=== PATIENT | male | born 1960 | race Caucasian/White ===

== ENCOUNTER 2017-03-01 18:06 | Inpatient (IN) ==
[2017-03-01] MEDS ORDERED: *HR* FentaNYL (PF) 100 MCG/2 ML VIAL IVP ONE (20:00)
[2017-03-01] MEDS ORDERED: Ondansetron 4 MG/2 ML VIAL IVP ONE (20:00)
[2017-03-01] MEDS ORDERED: 0.9 % Sodium Chloride 1,000 ML IVC ONE (20:00)
--- NOTE | 2017-03-01 20:08 | Emergency Department Note ---
Disposition Clinical Impression: Abdominal pain Qualifiers: Abdominal location: right lower quadrant Qualified Code(s): R10.31 - Right lower quadrant pain Disposition: Admitted As Inpatient Condition: Good [facility]: [facility]Primary Care Provider[facility] - Forms: Work/School Release, ED Satisfaction Letter Time of Disposition: 21:13 General Adult HPI - General Chief complaint: ED Abdominal Pain Stated complaint: RLQ pain Time Seen by Provider: 03/01/17 19:28 Source: patient Limitations: no limitations Nursing Notes Reviewed: Yes Vital Signs Reviewed: Yes - History of Present Illness HPI Narrative: Male patient complaining of a 6 hour history of right lower quadrant pain. Did have an episode of diaphoresis prior to this starting. States the pain is constant in his right lower quadrant. It does not radiate. The pain is not changed. There are no provoking or alleviating symptoms. Pain Scale: 8 - Related Data Home Medications Medication Instructions Recorded Confirmed Albuterol Sulfate [Albuterol 2 puff IH QID PRN 04/19/15 04/19/15 Inhaler] Aspirin Enteric Coated [Aspirin EC] 81 mg PO DAILY 04/19/15 04/19/15 Baclofen 10 mg PO TID PRN 04/19/15 04/19/15 Citalopram Hydrobromide 20 mg PO HS 04/19/15 04/19/15 [Citalopram HBr] Etodolac 400 mg PO BID 04/19/15 04/19/15 FluocinoNIDE 0.05% CRM [Lidex] 1 appl TP BID 04/19/15 04/19/15 Formoterol Fumarate [Foradil] 12 mcg IH BID 04/19/15 04/19/15 Gabapentin 800 mg PO TID 04/19/15 04/19/15 Ipratropium [place] [Atrovent Hfa] 2 puff IH QID 04/19/15 04/19/15 Lisinopril [Zestril] 40 mg PO DAILY 04/19/15 04/19/15 [place]-3 Fatty Acids/Fish Oil [Fish 2 each PO DAILY 04/19/15 04/19/15 Oil 1,000 mg Capsule] Omeprazole [Prilosec] 20 mg PO DAILY 04/19/15 04/19/15 Tadalafil [Cialis] 5 mg PO AD 04/19/15 04/19/15 TraMADol [Ultram] 100 mg PO BID PRN 04/19/15 04/19/15 Previous Rx's Medication Instructions Recorded Atorvastatin [Lipitor] 80 mg PO HS #30 tablet 04/21/15 Clopidogrel [Plavix] 75 mg PO DAILY #30 tablet 04/21/15 Hydrocodone/Acetaminophen [Mark 1 tab PO TID PRN #10 tab 07/16/16 5-325 Tablet] diazePAM [Valium] 5 mg PO TID #10 tablet 07/16/16 Allergies Allergy/AdvReac Type Severity Reaction Status Date / Time hydrochlorothiazide AdvReac Agitated Verified 07/16/16 22:14 All systems ED: reviewed and negative except as stated. Constitutional: Reports: fever (Subjective today. Began around 1.), chills Cardiovascular: Denies: chest pain, palpitations, syncope Respiratory: Denies: cough, dyspnea, wheezes Gastrointestinal: Reports: abdominal pain (Right lower quadrant.), nausea, diarrhea (One episode this evening). Denies: vomiting, hematemesis, melena, hematochezia Genitourinary: Denies: urgency, dysuria, frequency, hematuria Musculoskeletal: Denies: back pain, neck pain Integumentary: Denies: rash Past Medical History - Past Medical History Attestation: Yes The following information was validated with the patient. Medical history: Reports: arthritis, COPD, coronary artery disease, GERD, hypertension, peripheral artery disease, TIA, other Surgical history: Reports: angioplasty/stent, carotid endarterectomy, other Psychiatric history: Reports: no psych history - Social History Smoking Status: Former smoker Smokeless Tobacco Status: No Alcohol use: Reports: none Drug use: Reports: none Physical Exam - General Limitations: no limitations General appearance: alert, in distress (Appears in a significant amount of pain. ) - Head Head exam: atraumatic, normocephalic, normal inspection - Eye Eye exam: Present: normal appearance, PERRL, EOMI. Absent: scleral icterus - ENT ENT exam: normal exam, normal oropharynx, mucous membranes moist - Neck Neck exam: Present: normal inspection, full ROM, trachea midline. Absent: tenderness, meningismus, lymphadenopathy - Chest Chest inspection: Present: normal inspection, symmetric chest wall rise. Absent : tenderness - Respiratory Respiratory exam: Present: normal lung sounds bilaterally. Absent: respiratory distress, wheezes, accessory muscle use - Cardiovascular Cardiovascular exam: Present: regular rate, normal rhythm, normal heart sounds - Abdominal Exam Abdominal exam: Present: soft, tenderness (Peritoneal signs. She was really tender on right lower quadrant.), normal bowel sounds, obturator sign, Rovsing' s sign. Absent: distention, guarding, rigidity, organomegaly, Arana's sign, tenderness at McBurney's Point - Extremities Exam Extremities exam: Present: normal inspection, full ROM, normal capillary refill. Absent: tenderness, pedal edema - Back Exam Back exam: Present: normal inspection, full ROM. Absent: tenderness, CVA tenderness (R), CVA tenderness (L), muscle spasm - Neurological Exam Neurological exam: Present: alert, oriented X3 - Psychiatric Psychiatric exam: Present: normal affect, normal mood - Skin Skin exam: Present: warm, dry, intact, normal color. Absent: rash, cyanosis, diaphoresis, erythema Course Course Narrative: Male patient lying in bed complaining of right lower quadrant pain. He states this started around 2:00 this afternoon. An hour prior to this he started developing episodes of sweating and hot and cold chills. He states he was seen by EMS at work and was told that his blood pressure and temperature were normal. He then decided to go home. After he got home he started having right lower quadrant pain. He states the pain is in the same spot the whole time. It is not moved. He denies a history of kidney stones. He denies any CVA tenderness at rest or on exam. He denies any urinary symptoms or hematuria. He does report some nausea but no vomiting. He also reports having 3 bowel movements today the last one being softer than normal. He denies any history of abdominal surgeries. On exam patient looks to be in a significant amount of pain. He is holding his right lower quadrant. His lung sounds are clear heart tones are normal. On abdominal exam he is exquisitely tender in his right lower quadrant. He has a Rovsing sign. There is no Arana sign. He has an obturator sign as well. He states that he is slightly nauseated however has no episodes of vomiting. He has no pain with heel tap. Basic lab workup and a CT of patient's abdomen. I will contact the surgeon to discuss the physical exam findings are consistent with acute appendicitis. We will give the patient a fluid bolus and attempt to control his nausea and pain. - Reevaluation(s) Reevaluation #1: Patient reassessed. He states that the pain has eased with the fentanyl. The Zofran did help with the nausea as well. He is requesting a drink at this time. I have told him that we will wait and keep him nothing by mouth for now. He states his last oral intake was around 11:30 today. He states he does take Plavix daily but is on no other blood thinners. 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 Time: 20:52 - Consultations Consultation #1: I spoke with Dr. Lara. I expressed my concern for a appendicitis due to his right lower quadrant pain that has been present for 6 hours. He also has a positive obturator sign. He is also having some nausea but no vomiting. His abdomen is exquisitely tender on palpation. He also has a Rovsing sign. He expresses concern that we do not have lab work back yet. He is requesting a phone call back whenever we have a white blood cell count. Time: 20:07 Consultation #2: I spoke with Dr. Lara again. I made him aware that the patient is still in significant amount of pain even after pain medication administration. I have let him know that his white blood cell count is elevated however the CT scan was read as negative. He states he will admit the patient to his service. Time: 21:09 Vital Signs Temperature 98.7 F 03/01/17 18:37 Pulse Rate 63 03/01/17 18:37 Respiratory Rate 18 03/01/17 18:37 Blood Pressure 97/60 03/01/17 18:37 O2 Sat by Pulse Oximetry 95 03/01/17 18:37 Temperature 98.7 F 03/01/17 18:37 Pulse Rate 63 03/01/17 18:37 Respiratory Rate 18 03/01/17 18:37 Blood Pressure 97/60 03/01/17 18:37 O2 Sat by Pulse Oximetry 95 03/01/17 18:37 Oxygen Delivery Oxygen Delivery Room Air Medical Decision Making - Medical Records Medical records reviewed: Yes I reviewed the patient's medical records. - Lab Data Lab results reviewed: Yes I reviewed the patient's lab results. Result diagrams: 03/01/17 20:11 03/01/17 20:11 Lab Results 0603/01/17 03/01/17 Range/Units 20:07 20:11 20:11 WBC 19.0 H (4.3-11.1) K/mcL RBC 4.91 (4.19-5.50) M/mcL Hgb 14.7 (12.9-16.9) g/dL Hct 43.5 (37.5-50.1) % MCV 88.6 (83.0-100.0) fL MCH 29.9 (28.0-33.3) pg MCHC 33.8 (31.6-35.5) g/dL RDW 13.6 (11.5-14.5) % Plt Count 286 (140-400) K/mcL MPV 8.4 L (9.4-12.4) fL Immature Gran % 0.4 (0-4) % Seg Neutrophils % 74.9 % Lymphocytes % 14.8 % Monocytes % 8.9 % Eosinophils % 0.8 % Basophils % 0.2 % Neutrophils # 14.2 H (1.6-8.9) K/mcL Lymphocytes # 2.8 (0.6-4.6) K/mcL Monocytes # 1.7 H (0.0-1.3) K/mcL Eosinophils # 0.2 (0.0-0.6) K/mcL Basophils # 0.0 (0.0-0.2) K/mcL PT (9.4-12.1) Seconds INR Sodium 138 (136-145) mEq/L Potassium 4.0 (3.5-4.5) mEq/L Chloride 101 (98-109) mEq/L Carbon Dioxide 30 H (19-29) mEq/L BUN 16 (8-26) mg/dL Creatinine 1.20 (0.72-1.25) mg/dL Est GFR ( Amer) > 60 (> 60) Est GFR (Non-Af Amer) > 60 (> 60) BUN/Creatinine Ratio 13 (6-26) Glucose 135 H (70-99) mg/dL Calculated Osmolality 289 (280-300) Calcium 9.3 (8.6-10.8) mg/dL Total Bilirubin 0.2 (0.2-1.2) mg/dL Direct Bilirubin 0.1 (0.0-0.5) mg/dL Indirect Bilirubin 0.1 (0.0-1.2) mg/dL AST 20 (5-34) Units/L ALT 37 (0-55) Units/L Alkaline Phosphatase 92 (38-126) Units/L Troponin I (0-0.03) ng/mL Serum Total Protein 7.2 (6.0-8.3) g/dL Albumin 3.8 (3.5-5.0) g/dL Globulin 3.4 (2.4-3.5) g/dL Albumin/Globulin Ratio 1.1 (1.1-2.2) Lipase 25 (8-78) Units/L Urine Color Yellow (Yellow) Urine Clarity Cloudy A (Clear) Urine pH 6.5 (5.0-8.0) pH Units Ur Specific [place] 1.025 (1.010-1.025) Urine Protein Negative (Neg-Trace) mg/dL Urine Glucose (UA) 500 H (Normal) mg/dL Urine Ketones Negative (Negative) mg/dL Urine Blood Moderate H (Negative) Urine Nitrite Negative (Negative) Urine Bilirubin Negative (Negative) Urine Urobilinogen Normal (Normal) mg/dL Ur Leukocyte Esterase Negative (Negative) Urine Microscopic RBC 0-3 (0-3) per hpf Urine Microscopic WBC 5-15 H (0-3) per hpf Ur Squamous Epith Cells Many H (None-Few) per lpf Urine Bacteria None Seen (None-Few) per hpf Hyaline Casts None Seen (None-Few) per lpf Urine Yeast Test Not Performed Urine Sperm Present Ur Culture Indicated? YES A (NO) 03/01/17 03/01/17 Range/Units 20:11 20:11 WBC (4.3-11.1) K/mcL RBC (4.19-5.50) M/mcL Hgb (12.9-16.9) g/dL Hct (37.5-50.1) % MCV (83.0-100.0) fL MCH (28.0-33.3) pg MCHC (31.6-35.5) g/dL RDW (11.5-14.5) % Plt Count (140-400) K/mcL MPV (9.4-12.4) fL Immature Gran % (0-4) % Seg Neutrophils % % Lymphocytes % % Monocytes % % Eosinophils % % Basophils % % Neutrophils # (1.6-8.9) K/mcL Lymphocytes # (0.6-4.6) K/mcL Monocytes # (0.0-1.3) K/mcL Eosinophils # (0.0-0.6) K/mcL Basophils # (0.0-0.2) K/mcL PT 11.0 (9.4-12.1) Seconds INR 1.0 Sodium (136-145) mEq/L Potassium (3.5-4.5) mEq/L Chloride (98-109) mEq/L Carbon Dioxide (19-29) mEq/L BUN (8-26) mg/dL Creatinine (0.72-1.25) mg/dL Est GFR ( Amer) (> 60) Est GFR (Non-Af Amer) (> 60) BUN/Creatinine Ratio (6-26) Glucose (70-99) mg/dL Calculated Osmolality (280-300) Calcium (8.6-10.8) mg/dL Total Bilirubin (0.2-1.2) mg/dL Direct Bilirubin (0.0-0.5) mg/dL Indirect Bilirubin (0.0-1.2) mg/dL AST (5-34) Units/L ALT (0-55) Units/L Alkaline Phosphatase (38-126) Units/L Troponin I 0.00 (0-0.03) ng/mL Serum Total Protein (6.0-8.3) g/dL Albumin (3.5-5.0) g/dL Globulin (2.4-3.5) g/dL Albumin/Globulin Ratio (1.1-2.2) Lipase (8-78) Units/L Urine Color (Yellow) Urine Clarity (Clear) Urine pH (5.0-8.0) pH Units Ur Specific [place] (1.010-1.025) Urine Protein (Neg-Trace) mg/dL Urine Glucose (UA) (Normal) mg/dL Urine Ketones (Negative) mg/dL Urine Blood (Negative) Urine Nitrite (Negative) Urine Bilirubin (Negative) Urine Urobilinogen (Normal) mg/dL Ur Leukocyte Esterase (Negative) Urine Microscopic RBC (0-3) per hpf Urine Microscopic WBC (0-3) per hpf Ur Squamous Epith Cells (None-Few) per lpf Urine Bacteria (None-Few) per hpf Hyaline Casts (None-Few) per lpf Urine Yeast Urine Sperm Ur Culture Indicated? (NO) - Radiology Data Radiology results reviewed: Yes I reviewed the patient's radiology results. Abdomen/Pelvis CT 03/01/17 19:58 IMPRESSION: No evidence of obstructive uropathy. No acute appendicitis or other acute gastrointestinal abnormality. D/ / 03/01/2017 20:54:39 Anisha Walker MD / leanna Interpreting Provider: Anisha Walker MD Attestation Statement - Attestation Attestation: I examined this patient and my medical decision-making was reviewed with the SUPERVISING CHEF/PA/Advanced Practice Nurse/Resident Physician. I agree with the documented findings, disposition and treatment plan as described except to the extent set forth below. RLQ pain, +peritoneal signs and +guarding. concerns for Appy vs stone. will check labs. consulted with Dr Lara who wanted labs first.
[2017-03-01 20:18] LABS: Bilirubin,Urine Negative (Negative); Blood,Urine Moderate (Negative); Clarity,Urine Cloudy (Clear); Color,Urine Yellow (Yellow); Glucose,Urine (UA) 500 mg/dL (Normal); Ketones,Urine Negative (Negative); Leukocyte Esterase,Urine Negative (Negative); Nitrite,Urine Negative (Negative); PH,Urine 6.5 pH Units (5.0-8.0); Protein,Urine Negative (Neg-Trace); Specific Gravity,Urine 1.025 (1.010-1.025); Urobilinogen,Urine Normal (Normal)
[2017-03-01 20:19] LABS: Bacteria,Urine None Seen per hpf (None-Few); Hyaline Casts,Urine None Seen per lpf (None-Few); RBC,Urine 0-3 per hpf (0-3); Squamous Epithelial Cell,Urine Many per lpf (None-Few)
[2017-03-01 20:24] LABS: Basophils % 0.2 %; Eosinophils # 0.2 K/mcL (0.0-0.6); Eosinophils % 0.8 %; Hematocrit 43.5 % (37.5-50.1); Hemoglobin 14.7 g/dL (12.9-16.9); Immature Granulocytes % 0.4 % (0-4); Lymphocytes # 2.8 K/mcL (0.6-4.6); Lymphocytes % 14.8 %; Mean Corpuscular HGB Conc 33.8 g/dL (31.6-35.5); Mean Corpuscular Hemoglobin 29.9 pg (28.0-33.3); Mean Corpuscular Volume 88.6 fL (83.0-100.0); Mean Platelet Volume 8.4 fL (9.4-12.4); Monocytes # 1.7 K/mcL (0.0-1.3); Monocytes % 8.9 %; Neutrophils # 14.2 K/mcL (1.6-8.9); Platelet Count 286 K/mcL (140-400); Red Blood Count 4.91 M/mcL (4.19-5.50); Red Cell Distribution Width 13.6 % (11.5-14.5); Segmented Neutrophils % 74.9 %
[2017-03-01 20:30] LABS: Sperm,Urine Present
[2017-03-01 20:41] LABS: Alanine Aminotransferase 37 Units/L (0-55); Albumin 3.8 g/dL (3.5-5.0); Albumin/Globulin Ratio 1.1 (1.1-2.2); Alkaline Phosphatase 92 Units/L (38-126); Aspartate Amino Transferase 20 Units/L (5-34); BUN/Creatinine Ratio 13 (6-26); Bilirubin,Direct 0.1 mg/dL (0.0-0.5); Bilirubin,Indirect 0.1 mg/dL (0.0-1.2); Bilirubin,Total 0.2 mg/dL (0.2-1.2); Blood Urea Nitrogen 16 mg/dL (8-26); Calcium 9.3 mg/dL (8.6-10.8); Carbon Dioxide 30 mEq/L (19-29); Chloride 101 mEq/L (98-109); Globulin 3.4 g/dL (2.4-3.5); Glucose 135 mg/dL (70-99); Lipase 25 Units/L (8-78); Osmolality,Calculated 289 (280-300); Sodium 138 mEq/L (136-145); Total Protein 7.2 g/dL (6.0-8.3); eGFR For African Americans > 60 (> 60); eGFR For Non-African Americans > 60 (> 60)
[2017-03-01] MEDS ORDERED: Ondansetron 4 MG/2 ML VIAL IVP PRN (22:49)
[2017-03-01] MEDS: *HR* HYDROmorphone (PF) 1 MG/ML SYRINGE IVP PRN (23:10)
[2017-03-01] MEDS: Ringers Solution, Lactated 1,000 ML IVC SCH (23:13)
[2017-03-02] MEDS: Piperacillin/Tazobactam 3.375 GM in D5% in Water (Mini-Bag+) 100 ML IVPB SCH ×3 (00:55→22:15)
[2017-03-02] MEDS: *HR* HYDROmorphone (PF) 1 MG/ML SYRINGE IVP PRN ×7 (01:53→17:58)
[2017-03-02 05:28] LABS: Basophils % 0.2 %; Eosinophils # 0.1 K/mcL (0.0-0.6); Eosinophils % 0.4 %; Hematocrit 41.3 % (37.5-50.1); Immature Granulocytes % 0.4 % (0-4); Lymphocytes # 2.1 K/mcL (0.6-4.6); Lymphocytes % 10.4 %; Mean Corpuscular HGB Conc 33.9 g/dL (31.6-35.5); Mean Corpuscular Hemoglobin 29.6 pg (28.0-33.3); Mean Corpuscular Volume 87.3 fL (83.0-100.0); Mean Platelet Volume 8.8 fL (9.4-12.4); Monocytes # 1.8 K/mcL (0.0-1.3); Neutrophils # 15.8 K/mcL (1.6-8.9); Platelet Count 268 K/mcL (140-400); Red Blood Count 4.73 M/mcL (4.19-5.50); Red Cell Distribution Width 13.5 % (11.5-14.5); Segmented Neutrophils % 79.6 %
[2017-03-02] MEDS: Ringers Solution, Lactated 1,000 ML IVC SCH ×4 (08:55→15:40)
[2017-03-02] MEDS ORDERED: Bupivacaine/EPI 1:200k 0.25%PF 30 ML VIAL ONE ×2 (11:17→14:18)
--- NOTE | 2017-03-02 11:29 | General Surg History&Physical ---
Date of Encounter: 03/02/17 Time of Encounter: 10:45 History of Present Illness Chief complaint: Acute right lower quadrant abdominal pain, suspected acute appendicitis HPI: Mr. Gonzalez is a 56 year old male referred to surgical services after presenting to the emergency department with a 6 hour history of acute onset right lower quadrant abdominal pain. Patient describes antecedent chills and riders prior to onset of the pain. No nausea or vomiting. The patient was found to be exquisitely tender in the right lower quadrant with a leukocytosis of 19.0. CT the abdomen and pelvis was nondiagnostic though this is possible in the first 24 hours of onset of symptoms. Patient was admitted for observation. The patient's pain has continued unabated but has not progressed. He is still as acutely tender in the right lower quadrant with guarding. Repeat white count is 19.9. CT was personally reviewed with [facility]. The clinical findings, CT and labs were discussed with the patient and his . Surgery has been recommended. Past medical history: Hypertension; carotid stenosis. Surgical history: Cervical neck surgery effusion; carpal tunnel surgery; left carotid endarterectomy Allergies: Hydrochlorothiazide Medications: Albuterol 2 puffs 4 times a day when necessary Aspirin 81 mg by mouth daily Baclofen 10 mg by mouth 3 times a day when necessary Citalopram 20 mg by mouth daily at bedtime Etodolac 400 mg by mouth twice a day Fluocinonide 0.05% applied topically twice a day Formoterol 12 g inhaled twice a day Gabapentin 800 mg by mouth 3 times a day Ipratropium (Atrovent HFA) 2 puffs 4 times a day LIsinopril 40 mg by mouth daily [place]-3 fish oil 1000 mg 2 by mouth daily Omeprazole 20 mg by mouth daily Tadalafil 5 mg by mouth as directed Tramadol 100 mg by mouth twice a day as needed for pain Social history: Patient is , lives with spouse; former smoking admitting to 2 packs a day for 20 years but quit approximately 20 years ago. The patient admits to an occasional beer; he does not use illicit drugs Family history: Noncontributory Physical examination: Patient appears older than his stated age lying quietly in his hospital bed. The patient indicates movement hurts. Patient has been afebrile, currently 98.2; pulse 78, respirations 16, blood pressure 149/89. SPO2 on room air 92% Skin is warm, without obvious jaundice, multiple cutaneous tattoos are present Lungs: Clear to auscultation, pain on deep inspiration and cough Cardiac: Regular rate, no appreciable murmurs Abdomen: Nondistended, acutely tender in the right lower quadrant with guarding. There is referred pain from palpation of the other quadrants. Hypoactive bowel sounds. Extremities: No obvious clubbing cyanosis or edema. Laboratories: White count this morning 19.8, hemoglobin 14.0 with hematocrit 41.3; platelet count 268,000. Electrolytes on admission: notable for elevated carbon dioxide; other electrolytes, BUN, creatinine WNL; glucose 135 LFTs WNL urinalysis: pH 6.5; sp gravity 1.025; glucose 500, moderate blood, 0-3 WBC per HPF; 5-15 RBC per HPF Impression: A 56-year-old male with acute onset right lower quadrant abdominal pain. Pain has persisted through the night, leukocytosis has increased. There is evidence of hematuria though CT demonstrated no renal or ureteral abnormalities. No evidence of acute appendicitis was evident on CT but clinically it is quite likely that he has acute appendicitis. Treatment options include repeat CT, pain control and continued IV antibiotics versus surgery. Surgical risks including hemorrhage, infection, intra-abdominal abscess, injury to adjacent structures such as bowel, bladder, ureters; and possible removal normal appendix. The patient and his expressed understanding. They wish to proceed with surgery. This will be arranged as soon as possible. The patient is a reasonable candidate for laparoscopic appendectomy but understands that an open appendectomy may become necessary. Past Med Surg Social Fam HX - Past Medical History Medical history: arthritis, COPD, coronary artery disease, GERD, hypertension, peripheral artery disease, TIA, other Psychiatric history: no psych history - Past Surgical History Surgical History: carotid endarterectomy, other - Social History Smoking Status: Former smoker Smokeless Tobacco Status: No Alcohol use: none Drug use: none - Family History Mother Family Member Ethnicity: Non- Living Status: Hx Family Cardiac Disorders: Yes (CHF) Hx Family Respiratory Disorders: No Hx Family Cancer: No Hx Family GI Disorders: No Hx Family Endocrine Disorder: No Hx Family Neuromuscular Disorders: No Hx Family Neurologic Disorders: No Hx Family HEENT Disorders: No Hx Family Autoimmune Disorders: No Medications and Allergies Albuterol Sulfate [Albuterol Inhaler] 2 puff IH QID PRN 04/19/15 [History] Citalopram Hydrobromide [Citalopram HBr] 20 mg PO HS 04/19/15 [History] Etodolac 400 mg PO BID 04/19/15 [History] Formoterol Fumarate [Foradil] 12 mcg IH BID 04/19/15 [History] Ipratropium [place] [Atrovent Hfa] 2 puff IH QID 04/19/15 [History] Lisinopril [Zestril] 40 mg PO DAILY 04/19/15 [History] Omeprazole [Prilosec] 20 mg PO DAILY 04/19/15 [History] TraMADol [Ultram] 100 mg PO TID PRN 04/19/15 [History] Clopidogrel [Plavix] 75 mg PO DAILY #30 tablet 04/21/15 [Rx] Atorvastatin Calcium [Lipitor] 20 mg PO HS 03/01/17 [History] Methocarbamol [Robaxin-750] 1,500 mg PO BID 03/01/17 [History] Allergies hydrochlorothiazide Adverse Reaction (Verified 07/16/16 22:14) Agitated Review of Systems All systems PM: A 10-system review of systems was performed and is negative for pertinent findings except as documented above in the HPI. General Surgery Exam Initial Vital Signs Temp Pulse Resp BP Pulse Ox 98.7 F 63 18 97/60 95 03/01/17 18:37 03/01/17 18:37 03/01/17 18:37 03/01/17 18:37 03/01/17 18:37 Results - Labs 03/02/17 05:13 03/01/17 20:11 Abnormal lab results WBC 19.8 K/mcL (4.3-11.1) H 03/02/17 05:13 MPV 8.8 fL (9.4-12.4) L 03/02/17 05:13 Neutrophils # 15.8 K/mcL (1.6-8.9) H 03/02/17 05:13 Monocytes # 1.8 K/mcL (0.0-1.3) H 03/02/17 05:13 Carbon Dioxide 30 mEq/L (19-29) H 03/01/17 20:11 Glucose 135 mg/dL (70-99) H 03/01/17 20:11 Urine Clarity Cloudy (Clear) A 03/01/17 20:07 Urine Glucose (UA) 500 mg/dL (Normal) H 03/01/17 20:07 Urine Blood Moderate (Negative) H 03/01/17 20:07 Urine Microscopic WBC 5-15 per hpf (0-3) H 03/01/17 20:07 Ur Squamous Epith Cells Many per lpf (None-Few) H 03/01/17 20:07 Ur Culture Indicated? YES (NO) A 03/01/17 20:07 All other labs normal.
--- NOTE | 2017-03-02 11:29 | Anesthesia Evaluation PreOp ---
Date of Encounter: 03/02/17 Time of Encounter: 11:27 - Past History Planned Operation: Lap Appy Cardiac History: HTN (maintained on Lisinopril), Hyperlipidemia (maitnained on Lipitor), Other (PVDz/CAD previously maintained on ASA, Plavix. ECHO 04/20/2015 - LVEF 55-60%, Mild LV diastolic dysfx. No SWMA) Pulmonary History: Former smoker (2ppd x 20yrs. Quit 20yrs ago), COPD ( maintained on Atrovent, Formoterol) [employer] History: TIA (2014. s/p CEA 2011 w/re-stenosis 60-79% of LICA), Other ( Chronic Pain maintaiend on Baclofen, Tramadol, GAbapentin. Anxiety/Depression maintained on Citalopram) Other Medical History: GERD (maintained on Prilosec) Anesthesia History: No Prior Anesthetic Complications, Past Anesthesia (C-spine surgery, [facility], L-CEA 2011) Alcohol Use: none Drug use: none Medications and Allergies Albuterol Sulfate [Albuterol Inhaler] 2 puff IH QID PRN 04/19/15 [History] Citalopram Hydrobromide [Citalopram HBr] 20 mg PO HS 04/19/15 [History] Etodolac 400 mg PO BID 04/19/15 [History] Formoterol Fumarate [Foradil] 12 mcg IH BID 04/19/15 [History] Ipratropium [place] [Atrovent Hfa] 2 puff IH QID 04/19/15 [History] Lisinopril [Zestril] 40 mg PO DAILY 04/19/15 [History] Omeprazole [Prilosec] 20 mg PO DAILY 04/19/15 [History] TraMADol [Ultram] 100 mg PO TID PRN 04/19/15 [History] Clopidogrel [Plavix] 75 mg PO DAILY #30 tablet 04/21/15 [Rx] Atorvastatin Calcium [Lipitor] 20 mg PO HS 03/01/17 [History] Methocarbamol [Robaxin-750] 1,500 mg PO BID 03/01/17 [History] Allergies hydrochlorothiazide Adverse Reaction (Verified 07/16/16 22:14) Agitated - Meds/Allergy Pre-op Review Medications Reviewed: Yes Allergies Reviewed: Yes Beta Blockers on Current Med List: No Anesthesia Results - Labs 03/02/17 05:13 03/01/17 20:11 Laboratory Tests 03/01/17 03/01/17 20:11 20:11 PT 11.0 INR 1.0 Est GFR (Non-Af Amer) > 60 Glucose 135 H - Imaging EKG: image reviewed (66bpm SR) Anesthesia Exam Vital Signs Temp Pulse Resp BP Pulse Ox 03/02/17 10:50 98.2 F 78 16 149/89 92 03/02/17 07:20 98.3 F 77 18 152/75 92 03/02/17 04:14 98.5 F 85 16 148/78 93 03/01/17 22:53 98.1 F 75 16 152/84 95 03/01/17 21:58 18 145/92 03/01/17 21:20 98.8 F 91 18 134/81 95 03/01/17 18:37 98.7 F 63 18 97/60 95 Intake and Output 03/01/17 03/02/17 03/02/17 23:59 07:59 15:59 Intake Total 1000 / 1000 Output Total 575 / 575 Balance 425 / 425 Intake: IV Fluids 1000 / 1000 Lactated Ringers 1,000 ML 1000 / 1000 @ 125 mls/hr IVC .Q8H CHAD Rx#:[id number] Output: Urine 575 / 575 Other: Weight 88.054 kg 86.1 kg Patient Weight 03/02/17 23:59 Weight 86.1 kg Height: 5'0" Weight: 189# BMI = 28 NPO (# of Hours): MNoc - HEENT Pupil (Motor): Pupils equal, EOMI Mallampati: III Teeth: Edentulous Oral Opening: Greater than 3 - [employer] LOC: Oriented, Confused [employer] Motor: Normal RUE, Normal LUE, Normal RLE, Normal LLE, Normal Face [employer] Sensory: Normal: RUE, LUE, RLE, LLE, Face - Cardiac Rhythm: Regular Murmur: None - Pulmonary Breath Sounds: bilateral Clear Respiratory Effort: Symmetrical Anesthesia Assess/Plan ASA Score: 3 (PVDz, CAD, COPD, DM, Smoker), E Modified [place] Scale for Level of Consciousness: Cooperative, oriented, and tranquil Anesthetic Plan: General Monitoring Plan: Standard Monitors Recovery Plan: PACU Anes Supervising Prov Stmt: PT seen/evaluated, R&B Discussed, questions answered and consent obtained. Kody Bobo MD
[2017-03-02] MEDS ORDERED: Ipratropium/Albuterol Neb 3 ML ONE (12:07)
[2017-03-02] MEDS ORDERED: Lidocaine -MPF 2% 2 ML VIAL ONE (12:13)
[2017-03-02] MEDS ORDERED: *HR* Propofol 200 MG/20 ML VIAL IVP ONE (12:13)
[2017-03-02] MEDS ORDERED: *HR* Phenylephrine 10 MG/ML VIAL ONE (12:13)
[2017-03-02] MEDS ORDERED: Lidocaine -MPF 4% 5 ML AMPUL ONE (12:13)
[2017-03-02] MEDS ORDERED: *HR* Rocuronium Bromide 50 MG/5 ML VIAL ONE ×2 (12:13→13:29)
[2017-03-02] MEDS ORDERED: *HR* FentaNYL (PF) 100 MCG/2 ML VIAL ONE ×2 (12:13→13:37)
[2017-03-02] MEDS ORDERED: *HR* Midazolam HCl 2 MG/2 ML VIAL ONE (12:13)
[2017-03-02] MEDS ORDERED: Acetaminophen IV 1,000 MG/100 ML INFUS..BTL ONE (12:15)
[2017-03-02] MEDS ORDERED: Ondansetron 4 MG/2 ML VIAL ONE (12:40)
[2017-03-02] MEDS ORDERED: Dexamethasone 4 MG/ML VIAL ONE (12:40)
[2017-03-02] MEDS ORDERED: EPHEDrine 50 MG/ML VIAL ONE (12:51)
[2017-03-02] MEDS ORDERED: Piperacillin/Tazobactam 3.375 GM in D5% in Water (Mini-Bag+) 100 ML IVPB SCH (13:00)
[2017-03-02] MEDS ORDERED: *HR* HYDROmorphone 2 MG/ML SYRINGE ONE (13:04)
[2017-03-02] MEDS ORDERED: *HR* Promethazine 25 MG/ML VIAL IVP PRN (13:51)
[2017-03-02] MEDS ORDERED: *HR* Labetalol 20 MG/4 ML SYRINGE IVP PRN (13:51)
--- NOTE | 2017-03-02 14:45 | Operative Note ---
Date of procedure: 03/02/17 Pre-op diagnosis: acute right lower quadrant pain, suspected acute appendicitis Post-op diagnosis: other (necrotic cecum) Procedure: Laparoscopy, open right colectomy Complications: none apparent Anesthesia: GETA Local Anesthetics: 0.25% Sensorcaine HCL with Epinephrine 1:200,000 SubQ (cc) ( 30mL) Surgeon: Augusto Lara Estimated blood loss (cc): 150 IV fluids (cc): 1,500 Specimen: right colon Condition: stable Disposition: PACU Procedure in Detail: The patient was brought to the operating room where he was placed supine upon the operating table. The patient was appropriately identified as to person and procedure. The accuracy of this information was confirmed by the procedure team. The patient was then intubated and anesthetized under the supervision of Dr. Arely Madsen. Examination of the abdomen demonstrated no palpable abnormalities. As it was uncertain that the patient had voided any time prior to surgery, a Don catheter was inserted. This was accomplished after dilating a mild urethral stricture with a hemostat. Approximately 500 mL of clear yellow urine was evacuated once the Don was inserted. Several milliliters of 0.25% bupivacaine with 1-200,000 epinephrine was infiltrated into the infraumbilical skin. A small transverse incision was made, dissection was carried to the fascia. The fascia was grasped, elevated, and infiltrated with additional bupivacaine with epinephrine solution. The fascia was then incised, an 11 mm Xcel port was established. A rigid 10 mm laparoscope was placed within the obturator to visualize passage through the layers of the anterior abdominal wall. The abdominal cavity was accessed, the obturator was replaced by the rigid laparoscope. The abdomen was insufflated with gaseous carbon dioxide Under direct visualization a 5 mm suprapubic port was established and the 12 mm port established in the left lower quadrant, midclavicular line. Each of these sites was infiltrated with 0.25% bupivacaine with epinephrine. Using endoscopic [place] clamps, the cecum was identified and elevated. The antimesenteric wall of the cecum was necrotic with pneumatosis evident within the wall. The appendix appeared grossly normal. Based on these findings, the laparoscopic appendectomy was abandoned. The pneumoperitoneum was evacuated, the instrumentation removed. Instrumentation was changed to prepare for an open right colectomy. When the team was ready, an oblique incision was placed in the right anterior abdominal wall extending from the anterior axillary line almost to the midline. Several milliliters of 0.25% bupivacaine with 1-200,000 epinephrine was infiltrated into the skin along the proposed incision line. The skin was then incised, dissection was carried through the subcutaneous tissue. Bleeding points were controlled with electrocautery the right rectus abdominis muscle was divided with electrocautery. It was necessary to suture ligate the epigastric vessels with 3-0 silk. The posterior rectus sheath was grasped with Kristy clamps and elevated. The fascia was incised, the abdomen entered atraumatically. Exposure was facilitated by use of a self-retaining Omni tract retractor. The cecum and attached appendix were exteriorized. The distal terminal ileum was adherent in the pelvis but mobilized readily when fully dissected. The lateral peritoneal reflection was incised to the hepatic flexure. Using an Ethicon 75 mm linear stapler (blue cartridge), the distal ileum was divided approximately 2 cm proximal to the ileocecal valve and the colon was transected just distal to the hepatic flexure. The mesentery was divided with the aid of the [employer]. The right colic vessels were isolated, clamped with Kristy clamps, and divided. Theses vessels were suture ligated with 2-0 silk. The colon was removed from the operative field with the attached appendix. The distal ileum was placed alongside the transverse colon. The 2 segments of intestine were approximated with interrupted seromuscular 3-0 silk. The ends of the transverse colon and distal ileum were opened, a stapled [id number], functional end-to-end anastomosis was created with application of the Ethicon 75 mm stapler. (blue cartridge). The remaining opening in the bowel was approximated with interrupted 3-0 silk reinforced by application of an Ethicon TX 60 mm stapler (blue cartridge). The mesenteric defect was closed with interrupted 3-0 silk. The abdomen was inspected for adequate hemostasis. The remainder of the bowel was examined with no other abnormalities encountered. The abdominal wall was then closed in layers. The peritoneum was approximated with the posterior rectus sheath using running interlocking 0 Vicryl. The anterior rectus sheath was reapproximated with interrupted [id number]'s O Vicryl. Each of these layers was infiltrated with the bupivacaine with epinephrine solution. Skin edges were reapproximated with wing. The laparoscopic port sites were also closed with wing. Dry sterile dressings were applied. The patient was taken to recovery in stable condition. Needle, sponge, and instrument counts were correct at the close of the case. Total volume of 0.25% bupivacaine with 1-200,000 units epinephrine used during this procedure, 30 mL. right colon was opened on the back table, there were no palpable abnormalities associated with the necrotic antimesenteric wall of the cecum. The specimen was sent to [facility] for further evaluation.
--- NOTE | 2017-03-02 15:23 | Anesthesia Evaluation Post Op ---
Date of Encounter: 03/02/17 Time of Encounter: 15:22 - Vital Signs Vital Signs: Last Vital Signs Temp 98.9 F 03/02/17 15:16 Pulse 103 03/02/17 15:16 Resp 12 03/02/17 15:16 BP 137/92 03/02/17 15:16 Pulse Ox 97 03/02/17 15:16 - Lungs Lungs: Clear Ascult./Percussion - Airway Airway: Non-obstructed - Cardiovascular Regular Rate - Mental Status Mental Status: Alert & Oriented, Answers Appropriately - Pain Pain Scale: 2 - Nausea Vomiting Nausea Vomiting: Not Present - Hydration Hydration: NPO - Discharge PostOp Status: Transfer Patient to floor
--- NOTE | 2017-03-02 15:37 | Electrocardiograph Report ---
[address] [address] Test Date: 2017-03-01 Pat Name: Satya Gonzalez Department: 102 Room: 3B Gender: M Deployment Engineer: : [id number] Requested By: Kristin Sherman Order Number: [id number] Reading MD: Jane Castillo Measurements Intervals [place] Rate: 66 P: -14 WA: 157 QRS: 23 QRSD: 90 T: 45 QT: 372 QTc: 385 Interpretive Statements SINUS RHYTHM Electronically Signed On 03-02-2017 15:36:19 EDT by Jane Castillo
[2017-03-02] MEDS: Pantoprazole 40 MG VIAL IVP SCH (15:49)
[2017-03-02] MEDS: Albuterol 2.5 MG/3 ML NEBULIZER IH SCH ×2 (16:13→19:46)
[2017-03-02] MEDS: *HR* HYDROmorphone 20 MG/20 ML PCA IVC PRN (19:19)
[2017-03-03] MEDS: Albuterol 2.5 MG/3 ML NEBULIZER IH SCH ×7 (03:52→23:48)
[2017-03-03] MEDS: Piperacillin/Tazobactam 3.375 GM in D5% in Water (Mini-Bag+) 100 ML IVPB SCH (04:59)
[2017-03-03] MEDS: Ringers Solution, Lactated 1,000 ML IVC SCH (05:00)
[2017-03-03 05:23] LABS: Basophils % 0.1 %; Hematocrit 36.5 % (37.5-50.1); Immature Granulocytes % 0.5 % (0-4); Lymphocytes # 1.4 K/mcL (0.6-4.6); Lymphocytes % 6.4 %; Mean Corpuscular HGB Conc 33.7 g/dL (31.6-35.5); Mean Corpuscular Hemoglobin 29.9 pg (28.0-33.3); Mean Corpuscular Volume 88.6 fL (83.0-100.0); Mean Platelet Volume 9.1 fL (9.4-12.4); Monocytes # 2.6 K/mcL (0.0-1.3); Monocytes % 11.8 %; Neutrophils # 17.9 K/mcL (1.6-8.9); Platelet Count 367 K/mcL (140-400); Red Blood Count 4.12 M/mcL (4.19-5.50); Red Cell Distribution Width 13.4 % (11.5-14.5); Segmented Neutrophils % 81.2 %
[2017-03-03 05:24] LABS: Hemoglobin 12.3 g/dL (12.9-16.9)
[2017-03-03 05:36] LABS: Calcium 9.2 mg/dL (8.6-10.8)
[2017-03-03] MEDS ORDERED: 0.9 % Sodium Chloride 500 ML IVC ONE (07:56)
[2017-03-03] MEDS: Pantoprazole 40 MG VIAL IVP SCH (08:24)
--- NOTE | 2017-03-03 09:07 | General Surgery Progress Note ---
Date of Encounter: 03/03/17 Time of Encounter: 08:45 Subjective Patient reports: still having pain, pain is less Narrative: General Surgery - POD#1 Afebrile, 97.8; heart rate 111 (range 102-121); respirations 16 (range 15-20 ) blood pressure 132/76. SPO2 on 3 L/m nasal cannula 95% An episode of hypoxia, 82% when patient was on room air earlier this morning. Lungs: Clear, no obvious abdominal pain on deep inspiration Cardiac: Tachycardia without obvious murmurs Abdomen: Slightly distended, linda-incisional tenderness as expected, active bowel sounds but no flatus or BM. The incisions are clean and dry; dressings removed. Urine output: 500 mL since catheter placed intraoperatively; 450 mL so far today Laboratories: White count 22.0, likely response to surgery (preoperatively white count was 19.8) Hemoglobin and hematocrit 12.3 and 36.5; platelet count returned 67,000; neutrophils 17.9%, monocytes 2.6% Electrolytes notable for sodium of 133, potassium 6.0, BUN 30, creatinine 1.91 Impression: POD#1 status post laparoscopy converted to open right colectomy for ischemic necrosis of the cecum. Etiology yet to be determined Acceptable status ANIBAL hyponatremia without obvious neurologic sequelae hyperkalemia - possibly due to hemolysis during blood draw Plan: Maintain nothing by mouth except for ice chips due to a stapled entero- enterostomy anastomosis. fluid bolus and increase IV fluids to address the increased BUN/Cr maintain bryant due to moderate urethral stricture encountered at the time of placement as well as continued monitoring UO increase activities out of bed encourage cough and deep breathing, incentive spirometry pathology pending Objective Vital Signs - Last 8 Hours Temp Pulse Resp BP Pulse Ox 03/03/17 06:44 97.8 F 111 16 132/76 95 03/03/17 03:52 20 82 03/03/17 02:50 97.8 F 115 15 164/67 92 Intake and Output 03/02/17 03/03/17 03/03/17 23:59 07:59 15:59 Intake Total 1220 / 1220 Output Total 450 / 450 Balance 770 / 770 Intake: IV Fluids 1100 / 1100 Lactated Ringers 1,000 ML 1000 / 1000 @ 75 mls/hr IVC .[id number] [facility] Rx#:[id number] Zosyn 3.375 GM In 100 / 100 Dextrose 5% (Minibag+) 100 ML 100 ML @ 25 mls/hr IVPB Q8H [facility] Rx#: [id number] Oral 120 / 120 Output: Urine 0 / 0 Catheter 450 / 450 Other: Weight 87.9 kg Patient Weight 03/03/17 23:59 Weight 87.9 kg - Labs 03/03/17 04:47 03/03/17 04:47 Diabetes panel 03/03/17 Range/Units 04:47 Sodium 133 L (136-145) mEq/L Potassium 6.0 H D (3.5-4.5) mEq/L Chloride 102 (98-109) mEq/L Carbon Dioxide 19 (19-29) mEq/L BUN 30 H D (8-26) mg/dL Creatinine 1.91 H D (0.72-1.25) mg/dL Glucose 225 H (70-99) mg/dL Calcium 9.2 (8.6-10.8) mg/dL Calcium panel 03/03/17 Range/Units 04:47 Calcium 9.2 (8.6-10.8) mg/dL Pituitary panel 03/03/17 Range/Units 04:47 Sodium 133 L (136-145) mEq/L Potassium 6.0 H D (3.5-4.5) mEq/L Chloride 102 (98-109) mEq/L Carbon Dioxide 19 (19-29) mEq/L BUN 30 H D (8-26) mg/dL Creatinine 1.91 H D (0.72-1.25) mg/dL Glucose 225 H (70-99) mg/dL Calcium 9.2 (8.6-10.8) mg/dL Adrenal panel 03/03/17 Range/Units 04:47 Sodium 133 L (136-145) mEq/L Potassium 6.0 H D (3.5-4.5) mEq/L Chloride 102 (98-109) mEq/L Carbon Dioxide 19 (19-29) mEq/L BUN 30 H D (8-26) mg/dL Creatinine 1.91 H D (0.72-1.25) mg/dL Glucose 225 H (70-99) mg/dL Calcium 9.2 (8.6-10.8) mg/dL - VTE Documentation of Mechanical Device: Intermittent pneumatic compression device Consult Discharge Plan - Plan [facility]errals: [facility] [Primary Care Provider] -
[2017-03-03] MEDS: D5% in 0.45% NACL 1,000 ML IVC SCH ×2 (10:43→20:26)
[2017-03-03] MEDS: Ondansetron 4 MG/2 ML VIAL IVP PRN (20:25)
[2017-03-04] MEDS: Albuterol 2.5 MG/3 ML NEBULIZER IH SCH ×6 (03:57→23:35)
[2017-03-04 04:26] LABS: Basophils % 0.1 %; Eosinophils % 0.1 %; Hematocrit 26.7 % (37.5-50.1); Immature Granulocytes % 0.4 % (0-4); Lymphocytes # 1.9 K/mcL (0.6-4.6); Lymphocytes % 10.4 %; Mean Corpuscular HGB Conc 34.1 g/dL (31.6-35.5); Mean Corpuscular Hemoglobin 29.8 pg (28.0-33.3); Mean Corpuscular Volume 87.5 fL (83.0-100.0); Mean Platelet Volume 8.9 fL (9.4-12.4); Monocytes # 1.9 K/mcL (0.0-1.3); Monocytes % 10.7 %; Neutrophils # 14.2 K/mcL (1.6-8.9); Platelet Count 259 K/mcL (140-400); Red Blood Count 3.05 M/mcL (4.19-5.50); Red Cell Distribution Width 13.4 % (11.5-14.5); Segmented Neutrophils % 78.3 %
[2017-03-04 04:31] LABS: Hemoglobin 9.1 g/dL (12.9-16.9)
[2017-03-04 04:39] LABS: BUN/Creatinine Ratio 23 (6-26); Blood Urea Nitrogen 24 mg/dL (8-26); Calcium 8.2 mg/dL (8.6-10.8); Carbon Dioxide 24 mEq/L (19-29); Chloride 99 mEq/L (98-109); Glucose 172 mg/dL (70-99); Osmolality,Calculated 282 (280-300); Sodium 132 mEq/L (136-145); eGFR For African Americans > 60 (> 60); eGFR For Non-African Americans > 60 (> 60)
[2017-03-04 04:48] LABS: Potassium 4.8 mEq/L (3.5-4.5)
[2017-03-04] MEDS: D5% in 0.45% NACL 1,000 ML IVC SCH ×3 (07:18→23:48)
[2017-03-04] MEDS: Ondansetron 4 MG/2 ML VIAL IVP PRN (07:18)
--- NOTE | 2017-03-04 09:27 | General Surgery Progress Note ---
Date of Encounter: 03/04/17 Time of Encounter: 09:19 Subjective Patient reports: feels better, still having pain Narrative: General Surgery - POD#2 Patient feeling better, still complaining of pain but the preoperative symptoms have resolved. Patient describes no nausea vomiting but was given Zofran through the night Patient continues afebrile, currently 97.8, pulse still elevated, currently 110 (range 102-114); respirations 17, blood pressure 154/74 Lungs: Clear, no obvious pain and deep inspiration Cardiac: Persistent tachycardia, etiology not determined. Abdomen: Soft, linda-incisional pain as expected, no significant pain left side of the abdomen. No detected rebound. Bowel sounds present. Patient indicates he is passing flatus. No bowel movement today. Urine output: 1600 in the last 24 hours Labs: White count has improved 18.1 (previously 22.0); H&H has fallen to 9.1 and 26.7 - however, the patient was given significant perioperative fluids. I suspect the hemoglobin and hematocrit have fallen due to dilution Electrolytes - sodium 132, potassium has improved to 4.8, BUN has returned normal at 24, creatinine also has normalized to 1.03 Pathology still pending Impression: Postoperative day 2, status post laparoscopy converted to open right colectomy for necrotic-type mesenteric wall of the cecum. Patient dictates he is feeling much improved from his preoperative status. He is still experiencing incisional pain as expected Postoperative anemia - likely due to dilution; as patient given considerable IV fluids to address the transient elevation in BUN and creatinine Hyponatremia without obvious symptoms Hyperkalemia improved ANIBAL - resolved Plan: reduce IVF allow clear liquids encourage activity OOB Objective Vital Signs - Last 8 Hours Temp Pulse Resp BP Pulse Ox 03/04/17 06:56 97.8 F 110 17 154/74 91 03/04/17 03:21 98.0 F 109 20 151/80 93 Intake and Output 03/03/17 03/04/17 03/04/17 23:59 07:59 15:59 Intake Total 1030 / 1030 1000 / 1000 Output Total 500 / 500 350 / 350 Balance 530 / 530 1000 / 1000 -350 / -350 Intake: IV Fluids 1000 / 1000 1000 / 1000 D5% And 0.45% Nacl 1000 1000 / 1000 1000 / 1000 Ml Bag 1,000 ML @ 100 mls /hr IVC .Q10H [facility] Rx#: [id number] Oral 30 / 30 Output: Urine 350 / 350 Catheter 500 / 500 Other: Meal NPO for dinner # Bowel Movements 0 Weight 86.4 kg Patient Weight 03/04/17 23:59 Weight 86.4 kg - Labs 03/04/17 04:14 03/04/17 04:14 Diabetes panel 03/04/17 Range/Units 04:14 Sodium 132 L (136-145) mEq/L Potassium 4.8 H D (3.5-4.5) mEq/L Chloride 99 (98-109) mEq/L Carbon Dioxide 24 (19-29) mEq/L BUN 24 (8-26) mg/dL Creatinine 1.03 (0.72-1.25) mg/dL Glucose 172 H (70-99) mg/dL Calcium 8.2 L (8.6-10.8) mg/dL Calcium panel 03/04/17 Range/Units 04:14 Calcium 8.2 L (8.6-10.8) mg/dL Pituitary panel 03/04/17 Range/Units 04:14 Sodium 132 L (136-145) mEq/L Potassium 4.8 H D (3.5-4.5) mEq/L Chloride 99 (98-109) mEq/L Carbon Dioxide 24 (19-29) mEq/L BUN 24 (8-26) mg/dL Creatinine 1.03 (0.72-1.25) mg/dL Glucose 172 H (70-99) mg/dL Calcium 8.2 L (8.6-10.8) mg/dL Adrenal panel 03/04/17 Range/Units 04:14 Sodium 132 L (136-145) mEq/L Potassium 4.8 H D (3.5-4.5) mEq/L Chloride 99 (98-109) mEq/L Carbon Dioxide 24 (19-29) mEq/L BUN 24 (8-26) mg/dL Creatinine 1.03 (0.72-1.25) mg/dL Glucose 172 H (70-99) mg/dL Calcium 8.2 L (8.6-10.8) mg/dL - VTE Documentation of Mechanical Device: Intermittent pneumatic compression device Consult Discharge Plan - Plan [facility]errals: [facility] [Primary Care Provider] -
[2017-03-04] MEDS: Pantoprazole 40 MG VIAL IVP SCH (10:24)
[2017-03-04] MEDS: Lisinopril 20 MG TABLET PO SCH (16:53)
[2017-03-05] MEDS: Albuterol 2.5 MG/3 ML NEBULIZER IH SCH ×6 (03:36→23:02)
[2017-03-05 04:10] LABS: Basophils % 0.1 %; Eosinophils # 0.2 K/mcL (0.0-0.6); Eosinophils % 1.4 %; Hematocrit 24.4 % (37.5-50.1); Hemoglobin 8.1 g/dL (12.9-16.9); Immature Granulocytes % 0.5 % (0-4); Lymphocytes # 2.9 K/mcL (0.6-4.6); Lymphocytes % 19.5 %; Mean Corpuscular HGB Conc 33.2 g/dL (31.6-35.5); Mean Corpuscular Hemoglobin 29.7 pg (28.0-33.3); Mean Corpuscular Volume 89.4 fL (83.0-100.0); Mean Platelet Volume 8.9 fL (9.4-12.4); Monocytes # 1.1 K/mcL (0.0-1.3); Monocytes % 7.8 %; Neutrophils # 10.4 K/mcL (1.6-8.9); Platelet Count 273 K/mcL (140-400); Red Blood Count 2.73 M/mcL (4.19-5.50); Red Cell Distribution Width 13.6 % (11.5-14.5); Segmented Neutrophils % 70.7 %
[2017-03-05 04:27] LABS: BUN/Creatinine Ratio 30 (6-26); Blood Urea Nitrogen 32 mg/dL (8-26); Carbon Dioxide 27 mEq/L (19-29); Chloride 98 mEq/L (98-109); Glucose 118 mg/dL (70-99); Osmolality,Calculated 280 (280-300); Potassium 4.4 mEq/L (3.5-4.5); Sodium 131 mEq/L (136-145); eGFR For African Americans > 60 (> 60); eGFR For Non-African Americans > 60 (> 60)
[2017-03-05] MEDS: Lisinopril 20 MG TABLET PO SCH (08:01)
[2017-03-05] MEDS: Pantoprazole 40 MG VIAL IVP SCH (08:01)
[2017-03-05] MEDS: *HR* HYDROmorphone 20 MG/20 ML PCA IVC PRN (08:17)
--- NOTE | 2017-03-05 12:42 | General Surgery Progress Note ---
Date of Encounter: 03/05/17 Time of Encounter: 12:36 Subjective Patient reports: no new complaints Narrative: General Surgery: POD #3 The patient voicing no new complaints; admits to persistent incisional discomfort but the rest of his abdomen appears to be nontender Recurrent urinary retention requiring replacement of the Don catheter last evening - urine output approximately 1600 mL after catheter reinsertion Patient remains afebrile, 98.6, pulse has improved, currently 103 but range 70-103; RR 16, blood pressure 115/66; Lungs: Clear Abdomen: Swelling both cephalad and caudal to the transverse incision - likely hematoma in the right rectus abdominis. Active bowel sounds; patient passing flatus, no BM. He is tolerating clear liquids. Laboratories: White count continues to normalize, currently 14.6; hemoglobin and hematocrit have fallen to 8.1 and 24.4 ; platelet count 273,000 Differential has normalized except for neutrophils at 10.4% but this is also trending towards normal Sodium 131 without obvious sequela; potassium 4.4, BUN 38, creatinine 1.08. eGFR greater than 60 Impression: Postoperative day 3, status post laparoscopy converted to right colectomy for necrotic cecum. Etiology of the ischemia has yet to be determined. Pathology of the segment removed is still pending Plan: Advance diet to full Consult hematology for potential clotting disorder Discontinue IV fluids Maintain Don - due to recurrent urinary retention Objective Vital Signs - Last 8 Hours Temp Pulse Resp BP Pulse Ox 03/05/17 10:32 98.6 F 103 16 115/66 83 03/05/17 08:04 96 03/05/17 07:20 98.0 F 70 18 144/77 96 Intake and Output 03/04/17 03/05/17 03/05/17 23:59 07:59 15:59 Intake Total 1650 / 1650 Output Total 425 / 425 Balance 1225 / 1225 Intake: IV Fluids 1000 / 1000 D5% And 0.45% Nacl 1000 1000 / 1000 Ml Bag 1,000 ML @ 75 mls/ hr IVC .[id number] [facility] Rx#: [id number] Oral 200 / 200 Free Water 450 / 450 Output: Urine 425 / 425 Coude 425 / 425 Other: Meal Dinner Breakfast Percent of Meal Consumed 0% 0% Weight 85.4 kg Patient Weight 03/05/17 23:59 Weight 85.4 kg - Labs 03/05/17 03:29 03/05/17 03:29 Diabetes panel 03/05/17 Range/Units 03:29 Sodium 131 L (136-145) mEq/L Potassium 4.4 (3.5-4.5) mEq/L Chloride 98 (98-109) mEq/L Carbon Dioxide 27 (19-29) mEq/L BUN 32 H (8-26) mg/dL Creatinine 1.08 (0.72-1.25) mg/dL Glucose 118 H (70-99) mg/dL Calcium 8.0 L (8.6-10.8) mg/dL Calcium panel 03/05/17 Range/Units 03:29 Calcium 8.0 L (8.6-10.8) mg/dL Pituitary panel 03/05/17 Range/Units 03:29 Sodium 131 L (136-145) mEq/L Potassium 4.4 (3.5-4.5) mEq/L Chloride 98 (98-109) mEq/L Carbon Dioxide 27 (19-29) mEq/L BUN 32 H (8-26) mg/dL Creatinine 1.08 (0.72-1.25) mg/dL Glucose 118 H (70-99) mg/dL Calcium 8.0 L (8.6-10.8) mg/dL Adrenal panel 03/05/17 Range/Units 03:29 Sodium 131 L (136-145) mEq/L Potassium 4.4 (3.5-4.5) mEq/L Chloride 98 (98-109) mEq/L Carbon Dioxide 27 (19-29) mEq/L BUN 32 H (8-26) mg/dL Creatinine 1.08 (0.72-1.25) mg/dL Glucose 118 H (70-99) mg/dL Calcium 8.0 L (8.6-10.8) mg/dL - VTE Documentation of Mechanical Device: Intermittent pneumatic compression device Consult Discharge Plan - Plan [facility]errals: [facility] [Primary Care Provider] -
[2017-03-05] MEDS ORDERED: Furosemide 40 MG/4 ML VIAL IVP ONE (12:43)
[2017-03-05] MEDS ORDERED: Acetaminophen 325 MG TABLET PO PRN (12:45)
[2017-03-05] MEDS ORDERED: *HR* HYDROmorphone (PF) 1 MG/ML SYRINGE IVP PRN (12:45)
[2017-03-05] MEDS: *HR* OxyCODONE/APAP 5/325 TABLET PO PRN ×2 (13:55→20:48)
[2017-03-05] MEDS: Gabapentin 400 MG CAPSULE PO SCH ×2 (13:56→20:48)
--- NOTE | 2017-03-05 15:41 | Oncology Inp Consult Note ---
Date of Encounter: 03/05/17 Time of Encounter: 15:45 Assessment and Plan (1) Abdominal pain Status: Acute Assessment and plan: Mr. Gonzalez's very pleasant 56-year-old gentleman with known peripheral vascular disease as well as other risk factors for vascular disease including remote cocaine use and tobacco abuse who presents with an ischemic right bowel. It is unclear if this was a venous thromboembolism or an arterial event. Given his history and presentation, I would favor an arterial event as the cause of his ischemia. Pathology is pending. I have obtained a thrombophilia panel as requested. I will follow up these results. I have started him on Plavix and restarted his aspirin at 325 mg a day. I will await his pathology and from of a workup prior to making decision for lifelong anticoagulation. I discussed this case with Dr. campbell who concurs with the plan. Patient does have significant anemia. I have obtained nutritional studies for iron B12 and folic acid. I have empirically start him on Venofer for iron replacement. We will to continue to follow during the hospital stay. I will schedule follow- up in the office after discharge. Qualifiers: Abdominal location: right lower quadrant Qualified Code(s): R10.31 - Right lower quadrant pain (2) Anemia Status: Acute Qualifiers: Anemia type: iron deficiency Qualified Code(s): D50.0 - Iron deficiency anemia secondary to blood loss (chronic) - Data of Consult Requesting Physician: Augusto Campbell Primary Care Provider: PCP [place] - Consult Narrative Reason for consult: Ischemic right colon. History of present illness: Mr. Gonzalez is a 56 year old male who presented with acute onset right lower quadrant pain. On day of admission, patient presented with a 6 hour episode of right lower quadrant pain. CT imaging the abdomen and pelvis revealed no acute abnormality. Patient was admitted to the hospital and his pain progressed prompting surgery under the care of Dr. Campbell March 02. At times surgery, patient was found to have ischemic right colon with pneumatosis. Laparoscopic surgery was converted to open surgery and he underwent right hemicolectomy. Pathology from the specimen is pending. Secondary to his acute onset and presentation, or request for thrombophilia evaluation has been made. He has known peripheral vascular disease and has required endarterectomy in the past. He was placed on aspirin and Plavix following his endarterectomy but approximate 6 months ago his aspirin was discontinued. In addition to this, he does admit to cocaine use in his younger years. He did smoke tobacco for approximately 20 years but quit 20 years ago. He denies any other family history of thrombophilia or other blood clotting disorder. Past Med Surg Social Fam HX - Past Medical History Medical history: arthritis, COPD, coronary artery disease, GERD, hypertension, peripheral artery disease, TIA, other Psychiatric history: no psych history - Past Surgical History Surgical History: carotid endarterectomy, other - Social History Smoking Status: Former smoker Smokeless Tobacco Status: No Alcohol use: none Drug use: none Occupational status: employed - Family History Mother Family Member Ethnicity: Non- Living Status: Hx Family Cardiac Disorders: Yes (CHF) Hx Family Respiratory Disorders: No Hx Family Cancer: No Hx Family GI Disorders: No Hx Family Endocrine Disorder: No Hx Family Neuromuscular Disorders: No Hx Family Neurologic Disorders: No Hx Family HEENT Disorders: No Hx Family Autoimmune Disorders: No Medications and Allergies Albuterol Sulfate [Albuterol Inhaler] 2 puff IH QID PRN 04/19/15 [History] Citalopram Hydrobromide [Citalopram HBr] 20 mg PO HS 04/19/15 [History] Etodolac 400 mg PO BID 04/19/15 [History] Formoterol Fumarate [Foradil] 12 mcg IH BID 04/19/15 [History] Ipratropium [place] [Atrovent Hfa] 2 puff IH QID 04/19/15 [History] Lisinopril [Zestril] 40 mg PO DAILY 04/19/15 [History] Omeprazole [Prilosec] 20 mg PO DAILY 04/19/15 [History] TraMADol [Ultram] 100 mg PO TID PRN 04/19/15 [History] Clopidogrel [Plavix] 75 mg PO DAILY #30 tablet 04/21/15 [Rx] Atorvastatin Calcium [Lipitor] 20 mg PO HS 03/01/17 [History] Methocarbamol [Robaxin-750] 1,500 mg PO BID 03/01/17 [History] Allergies hydrochlorothiazide Adverse Reaction (Verified 07/16/16 22:14) Agitated Constitutional: Present: fatigue Eyes: Present: as per HPI Cardiovascular: Present: as per HPI Gastrointestinal: Present: abdominal pain, bloating, cramping, other Additional comments: Passing flatus, but has yet to pass stool Genitourinary: difficulty urinating Musculoskeletal: Present: as per HPI Neurological: Present: as per HPI Hematologic/Lymphatic: Present: as per HPI Oncology - Exam - Constitutional Vitals: Temp Pulse Resp BP Pulse Ox 98.6 F 103 16 115/66 83 03/05/17 10:32 03/05/17 10:32 03/05/17 10:32 03/05/17 10:32 03/05/17 10:32 - Head Head exam: Present: atraumatic, normal inspection, normocephalic - Eye Eye exam: Present: conjuntiva pink, sclera anicteric - ENT ENT exam: Present: mucous membranes moist, normal oropharynx - Neck Neck exam: Present: full ROM, normal inspection - Respiratory Respiratory exam: Present: CTAB - Cardiovascular Cardiovascular exam: Present: RRR - GI/Abdominal GI/Abdominal exam: Present: diminished bowel sounds, distended, firm, tenderness - exam: Present: normal inspection - Extremities Exam Extremities exam: Present: normal capillary refill, normal inspection - Neurological Exam Neurological exam: Present: CN II-XII intact, oriented X3 Oncology - Results - Labs Labs: Short CBC 03/05/17 Range/Units 03:29 WBC 14.6 H (4.3-11.1) K/mcL Hgb 8.1 L (12.9-16.9) g/dL Hct 24.4 L (37.5-50.1) % Plt Count 273 (140-400) K/mcL Neutrophils # 10.4 H (1.6-8.9) K/mcL BMP 03/05/17 03:29 Sodium 131 L Potassium 4.4 Chloride 98 Carbon Dioxide 27 BUN 32 H Creatinine 1.08 Glucose 118 H Calcium 8.0 L Consult Discharge Plan - Plan [facility]errals: [facility] [Primary Care Provider] -
[2017-03-05] MEDS: Aspirin Enteric Coated 325 MG Tablet PO SCH (17:34)
[2017-03-05] MEDS: Iron Sucrose Complex 200 MG in 0.9 % Sodium Chloride 100 ML IVPB SCH (17:35)
[2017-03-06] MEDS: D5% in 0.45% NACL 1,000 ML IVC SCH (02:28)
[2017-03-06] MEDS: Albuterol 2.5 MG/3 ML NEBULIZER IH SCH ×6 (03:19→23:02)
[2017-03-06] MEDS: Aspirin Enteric Coated 325 MG Tablet PO SCH (08:44)
[2017-03-06] MEDS: Lisinopril 20 MG TABLET PO SCH (08:44)
[2017-03-06] MEDS: Gabapentin 400 MG CAPSULE PO SCH ×3 (08:46→21:40)
[2017-03-06] MEDS: Iron Sucrose Complex 200 MG in 0.9 % Sodium Chloride 100 ML IVPB SCH (08:52)
[2017-03-06 09:07] LABS: Basophils % 0.2 %; Eosinophils # 0.3 K/mcL (0.0-0.6); Eosinophils % 2.5 %; Hematocrit 28.4 % (37.5-50.1); Hemoglobin 9.3 g/dL (12.9-16.9); Immature Granulocytes % 0.5 % (0-4); Lymphocytes # 2.6 K/mcL (0.6-4.6); Lymphocytes % 18.9 %; Mean Corpuscular HGB Conc 32.7 g/dL (31.6-35.5); Mean Corpuscular Hemoglobin 29.4 pg (28.0-33.3); Mean Corpuscular Volume 89.9 fL (83.0-100.0); Mean Platelet Volume 8.2 fL (9.4-12.4); Monocytes # 1.4 K/mcL (0.0-1.3); Monocytes % 10.3 %; Neutrophils # 9.2 K/mcL (1.6-8.9); Platelet Count 330 K/mcL (140-400); Red Blood Count 3.16 M/mcL (4.19-5.50); Red Cell Distribution Width 13.5 % (11.5-14.5); Segmented Neutrophils % 67.6 %
[2017-03-06 10:48] LABS: % Iron Saturation 50 % (20-55); BUN/Creatinine Ratio 23 (6-26); Blood Urea Nitrogen 23 mg/dL (8-26); Carbon Dioxide 28 mEq/L (19-29); Chloride 99 mEq/L (98-109); Glucose 105 mg/dL (70-99); Iron 122 mcg/dL (65-175); Osmolality,Calculated 284 (280-300); Potassium 4.5 mEq/L (3.5-4.5); Sodium 135 mEq/L (136-145); Transferrin 176 mg/dL (174-364); eGFR For African Americans > 60 (> 60); eGFR For Non-African Americans > 60 (> 60)
[2017-03-06 11:53] LABS: Ferritin 232 ng/ml (22-275)
[2017-03-06 12:04] LABS: Factor V Leiden Normal (Normal); Prothrombin G20210A Mutation Normal (Normal)
[2017-03-06] MEDS ORDERED: Furosemide 40 MG TABLET PO ONE (13:26)
--- NOTE | 2017-03-06 13:39 | General Surgery Progress Note ---
Date of Encounter: 03/06/17 Time of Encounter: 13:29 Subjective Patient reports: feels better, tolerating liquids well Narrative: General Surgery - POD #4 The patient indicates that he is feeling well. He is anxious to go home. Bloody wound drainage noted earlier today. Dark, non clotting blood on ABD. incision otherwise clean and healing well. No erythema, edema. No detected fascial defects The patient is tolerating full liquids - no N/V, flatus but no BM Afebrile, 98.3, pulse 84, respirations 16, blood pressure 127/71. SPO2 on room air 91 and 92% Lungs: Clear, no obvious abdominal pain with deep inspiration Abdomen: Distended but soft, nontender. The abdomen is described to be back to baseline Incisions healing well as described above; bloody drainage likely due to accumulated hematoma within the right rectus abdominis muscle Urine output: 3850 mL in the last 24 hours Laboratories: White count continues to trend towards normal, 13.6, hemoglobin has increased to 9.3 with hematocrit 28.4 with diuresis.; Neutrophils continue to trend towards normal 9.2 Electrolytes, BUN, creatinine - sodium has increased at 135; other labs stable and within normal limits Pathology: Still pending Hematology consultation appreciated Impression / Plan: Postoperative day 4, s/p laparoscopy converted to open right colectomy. Acceptable postoperative recovery and status - advance to regular diet Perioperative tachycardia resolved Postoperative anemia - improved as patient mobilizes the perioperative fluids. Continue diuresis with additional furosemide today. Hematoma right rectus abdominis muscle - spontaneous drainage through the incision Postoperative acute urinary retention - Don still in place, to be removed in a.m. Objective Vital Signs - Last 8 Hours Temp Pulse Resp BP Pulse Ox 03/06/17 11:11 98.3 F 84 16 127/71 91 03/06/17 08:57 92 03/06/17 06:55 98.4 F 92 15 143/81 92 Intake and Output 03/05/17 03/06/17 03/06/17 23:59 07:59 15:59 Intake Total 110 / 110 1510 / 1510 Output Total 550 / 550 Balance -440 / -440 1510 / 1510 Intake: IV Fluids 110 / 110 Venofer 200 MG In 0.9 % 110 / 110 Sodium Chloride 100 ML @ 200 mls/hr IVPB DAILY [facility] Rx#:[id number] Oral 1510 / 1510 Output: Catheter 550 / 550 Other: Meal Lunch Percent of Meal Consumed 100% - Labs 03/06/17 08:53 03/06/17 08:07 Diabetes panel 03/06/17 Range/Units 08:07 Sodium 135 L (136-145) mEq/L Potassium 4.5 (3.5-4.5) mEq/L Chloride 99 (98-109) mEq/L Carbon Dioxide 28 (19-29) mEq/L BUN 23 (8-26) mg/dL Creatinine 0.98 (0.72-1.25) mg/dL Glucose 105 H (70-99) mg/dL Calcium 9.0 (8.6-10.8) mg/dL Calcium panel 03/06/17 Range/Units 08:07 Calcium 9.0 (8.6-10.8) mg/dL Pituitary panel 03/06/17 Range/Units 08:07 Sodium 135 L (136-145) mEq/L Potassium 4.5 (3.5-4.5) mEq/L Chloride 99 (98-109) mEq/L Carbon Dioxide 28 (19-29) mEq/L BUN 23 (8-26) mg/dL Creatinine 0.98 (0.72-1.25) mg/dL Glucose 105 H (70-99) mg/dL Calcium 9.0 (8.6-10.8) mg/dL Adrenal panel 03/06/17 Range/Units 08:07 Sodium 135 L (136-145) mEq/L Potassium 4.5 (3.5-4.5) mEq/L Chloride 99 (98-109) mEq/L Carbon Dioxide 28 (19-29) mEq/L BUN 23 (8-26) mg/dL Creatinine 0.98 (0.72-1.25) mg/dL Glucose 105 H (70-99) mg/dL Calcium 9.0 (8.6-10.8) mg/dL - VTE Documentation of Mechanical Device: Intermittent pneumatic compression device Consult Discharge Plan - Plan [facility]errals: [facility] [Primary Care Provider] -
[2017-03-06] MEDS: *HR* OxyCODONE/APAP 5/325 TABLET PO PRN (21:41)
[2017-03-07] MEDS: Albuterol 2.5 MG/3 ML NEBULIZER IH SCH ×4 (03:07→15:00)
[2017-03-07 04:51] LABS: Basophils % 0.2 %; Eosinophils # 0.4 K/mcL (0.0-0.6); Eosinophils % 2.9 %; Hematocrit 24.2 % (37.5-50.1); Hemoglobin 8.2 g/dL (12.9-16.9); Immature Granulocytes % 0.7 % (0-4); Lymphocytes # 2.6 K/mcL (0.6-4.6); Lymphocytes % 21.5 %; Mean Corpuscular HGB Conc 33.9 g/dL (31.6-35.5); Mean Corpuscular Hemoglobin 30.1 pg (28.0-33.3); Mean Platelet Volume 8.7 fL (9.4-12.4); Monocytes # 1.5 K/mcL (0.0-1.3); Monocytes % 12.1 %; Neutrophils # 7.6 K/mcL (1.6-8.9); Platelet Count 283 K/mcL (140-400); Red Blood Count 2.72 M/mcL (4.19-5.50); Red Cell Distribution Width 13.6 % (11.5-14.5); Segmented Neutrophils % 62.6 %
[2017-03-07] MEDS: *HR* OxyCODONE/APAP 5/325 TABLET PO PRN (05:07)
[2017-03-07] MEDS: Lisinopril 20 MG TABLET PO SCH (09:20)
[2017-03-07] MEDS: Gabapentin 400 MG CAPSULE PO SCH (09:20)
[2017-03-07] MEDS: Aspirin Enteric Coated 325 MG Tablet PO SCH (09:20)
[2017-03-07] MEDS: Iron Sucrose Complex 200 MG in 0.9 % Sodium Chloride 100 ML IVPB SCH (09:39)
[2017-03-07 11:19] VITALS: BP 108/64
--- NOTE | 2017-03-07 15:53 | General Surgery Progress Note ---
Date of Encounter: 03/07/17 Time of Encounter: 15:22 Subjective Patient reports: no new complaints, feels better, voiding w/o difficulty Narrative: General Surgery - POD #5 Progress Note / Discharge Summary Patient feeling well, he is voicing no complaints. Afebrile, currently 98.9; pulse 95 (range 63-95); respiratory rate 14, blood pressure 108/64. SPO2 on room air ranging from 88-98%. The patient experienced no respiratory distress despite SPO2 in the 88% range. Significant past medical history of tobacco abuse. Lungs: Clear to auscultation; no obvious abdominal pain with deep inspiration Cardiac: Tachycardia resolved; no appreciable murmurs Abdomen: Soft, slightly protuberant but believed to be at baseline; nontender. Dark, nonclotting bloody drainage exiting the transverse incision - hematoma right rectus abdominis muscle Don catheter: Remove this morning; patient able to void. Urine output: 2050 mL for calendar day 03/06/17; 4150 mL today Laboratories: Leukocytosis continues to diminish, 12.1; hemoglobin 8.2, hematocrit 24.2 - neutrophils no longer elevated Pathology: Cecum showing transmural necrosis with acute inflammation, mild cryptitis and focal pseudomembranous formation. Appendix demonstrating findings consistent with early acute appendicitis; multiple regional lymph nodes with reactive changes, no neoplasm identified Impression: Postoperative day 5, status post laparoscopy converted to open right colectomy. Satisfactory recovery with plans to discharge home today. Brief history: 86-year-old male referred to surgical services after presenting to the emergency department with a 6 hour history of abrupt onset right lower quadrant abdominal pain, 03/01/17. The patient was found to be in acute distress related to his abdominal pain, white count was 19,000. CT was unremarkable including no evidence of acute appendicitis. Based on the acute severe symptoms the patient was admitted for further observation, paiin control and management. The acute symptoms persisted through the night without abatement ; repeat white count had increased to 19.8. The CT had been personally reviewed with [facility] with no additional findings discusssed. The patient was taken to surgery where laparoscopy was initiated. The appendix appeared grossly normal but the antimesenteric wall of the cecum was ischemic with early necrosis. An open celiotomy with right colectomy was completed after which the patient required posr op care and IV therapy. Past medical history: Notable for hypertension, carotid stenosis, and a significant history of tobacco abuse (2 packs per day for over 20 years) Postoperative course was notable for acute kidney injury which resolved with aggressive IV fluids; anemia, acute urinary retention requiring Don catheter insertion. The patient remained tachycardic for several days postop but this eventually resolved without sequela. Patient also developed hyponatremia without symptoms and was mildly hyperkalemic totally responded to fluids and resolution of the acute kidney injury. Pathologic evaluation of the surgically removed specimen demonstrated transmural necrosis of the cecum with acute inflammation and mild cryptitis and focal pseudomembranous formation. The appendix demonstrated findings consistent with early acute appendicitis; multiple regional lymph nodes demonstrated reactive changes without evidence of malignancy. The patient's status improved sufficiently to be discharged on postoperative day 5, 03/07/17. At the time of discharge patient was afebrile, hemodynamically stable. He was no longer tachycardic. His perioperative leukocytosis at almost completely resolved, 12.1. He acute urinary retention also resolved. The patient was able to void prior to the time of discharge after the Don catheter was removed. Diagnoses: Acute down pain secondary to transmural necrosis of the cecum with acute inflammation, mild cryptitis, and focal pseudomembranous formation. Early acute appendicitis Postoperative acute kidney injury - resolved Perioperative tachycardia - resolved COPD / Chronic hypoxia most likely related to his history prolonged tobacco abuse Postoperative anemia - likely due to a combination of perioperative fluids ( dilution) and acute blood loss. Intramuscular hematoma, right rectus abdominis Hyponatremia Transient hyperkalemia Hypertension Chronic back pain History of TIA Instructions: regular diet patient may shower, wash incisions with soap and water activities as tolerated, no lifting more than 20# Tylenol, Ibuprofen, Motrin, Advil, Aleve, etc as needed for pain Tramadol - to be used as previously prescribed Prescription for Percocet for pain not relieved by over the counter medications or home meds Outpatient follow up with [facility], 03/12/[address] Rocky Garcia, Hematology as scheduled. Objective Vital Signs - Last 8 Hours Temp Pulse Resp BP Pulse Ox 03/07/17 11:18 98.9 F 95 14 108/64 88 Intake and Output 03/06/17 03/07/17 03/07/17 23:59 07:59 15:59 Intake Total 480 / 480 850 / 850 260 / 260 Output Total 1600 / 1600 3750 / 3750 550 / 550 Balance -1120 / -1120 -2900 / -2900 -290 / -290 Intake: Oral 480 / 480 850 / 850 260 / 260 Output: Urine 1600 / 1600 150 / 150 Catheter 3600 / 3600 550 / 550 Other: Meal Dinner Breakfast Percent of Meal Consumed 80% 70% Stool Size Moderate Stool Consistency loose Stool Color Brown Weight 85.6 kg Patient Weight 03/07/17 23:59 Weight 85.6 kg - Labs 03/07/17 03:44 03/06/17 08:07 - VTE Documentation of Mechanical Device: Intermittent pneumatic compression device Consult Discharge Plan - Plan [facility]errals: [facility] [Primary Care Provider] -
--- NOTE | 2017-03-07 16:00 | Discharge Summary ---
Outpatient Proc Discharge Plan - Plan Instructions: Open Appendectomy (DC), Open Cholecystectomy (DC) Additional Instructions: regular diet patient may shower, wash incisions with soap and water apply heat to transverse incision with caution against thermal injury outpatient surgical follow up - 03/12/2017 - patient to call office in AM to make appointment outpatient follow up with Dr Rocky Garcia as scheduled activities as tolerated, lifting limited to less than 20# resume home medications; Tramadol to be used as previously prescribed Tylenol, ibuprofen, Motrin, Advil, Aleve, etc as needed for pain prescription: Percocet #20 1 every 6 hours as needed for pain not relieved by over the counter medications or Tramadol Prescriptions: OxyCODONE/APAP 5/325 [Percocet 5/325 MG] 1 each PO Q6H PRN #20 tablet PRN Reason: Pain Home Medications: Albuterol Sulfate [Albuterol Inhaler] 2 puff IH QID PRN 04/19/15 [History] Citalopram Hydrobromide [Citalopram HBr] 20 mg PO HS 04/19/15 [History] Etodolac 400 mg PO BID 04/19/15 [History] Formoterol Fumarate [Foradil] 12 mcg IH BID 04/19/15 [History] Ipratropium [place] [Atrovent Hfa] 2 puff IH QID 04/19/15 [History] Lisinopril [Zestril] 40 mg PO DAILY 04/19/15 [History] Omeprazole [Prilosec] 20 mg PO DAILY 04/19/15 [History] TraMADol [Ultram] 100 mg PO TID PRN 04/19/15 [History] Clopidogrel [Plavix] 75 mg PO DAILY #30 tablet 04/21/15 [Rx] Atorvastatin Calcium [Lipitor] 20 mg PO HS 03/01/17 [History] Methocarbamol [Robaxin-750] 1,500 mg PO BID 03/01/17 [History] Aspirin Enteric Coated [Aspirin EC] 325 mg PO DAILY tablet. 03/07/17 [Rx] Clopidogrel [Plavix] 75 mg PO DAILY tablet 03/07/17 [Rx] Gabapentin [Neurontin] 800 mg PO TID capsule 03/07/17 [Rx] OxyCODONE/APAP 5/325 [Percocet 5/325 MG] 1 each PO Q6H PRN #20 tablet 03/07/17 [ Rx]
[2017-03-08 02:26] LABS: Hematocrit RBC Folate 28.4 %
[2017-03-08 17:41] LABS: APTT (LE Anticoag) 43 sec (32-48); Diluted Russell Viper Venom 37 sec (33-44); PT (LE-Anticoag) 13.1 sec (12.0-15.5)
[2017-03-09 07:15] LABS: Antithrombin III, Activity 105 % (76-128); Protein S Antigen, Total 122 % (84-134)
[2017-03-10 10:14] LABS: Antiphospholipid IgG High Spec 2 GPL (0-14); Antiphospholipid IgM High Spec 0 MPL (0-14)
== END 2017-03-07 16:30 | disposition home or self-care (01) | DRG 330 ==
LOC: EMEROO 18:06 → 3BNU 18:06
PROVIDERS: ADMIT Surgery; ATTEND Surgery

== ENCOUNTER 2021-09-24 20:26 | Inpatient (IN) ==
[2021-09-24] MEDS ORDERED: 0.9 % Sodium Chloride 500 ML IVC ONE (21:06)
[2021-09-24 21:31] LABS: Basophils # 0.1 K/mcL (0.0-0.2); Basophils % 0.5 %; Eosinophils # 0.5 K/mcL (0.0-0.6); Eosinophils % 5.1 %; Hematocrit 33.1 % (37.5-50.1); Hemoglobin 10.4 g/dL (12.9-16.9); Immature Granulocytes % 0.3 % (0-4); Lymphocytes # 1.8 K/mcL (0.6-4.6); Lymphocytes % 19.1 %; Mean Corpuscular HGB Conc 31.4 g/dL (31.6-35.5); Mean Corpuscular Hemoglobin 27.6 pg (28.0-33.3); Mean Corpuscular Volume 87.8 fL (83.0-100.0); Mean Platelet Volume 7.8 fL (9.4-12.4); Monocytes # 0.9 K/mcL (0.0-1.3); Monocytes % 9.3 %; Neutrophils # 6.1 K/mcL (1.6-8.9); Platelet Count 306 K/mcL (140-400); Red Blood Count 3.77 M/mcL (4.19-5.50); Red Cell Distribution Width 14.3 % (11.5-14.5); Segmented Neutrophils % 65.7 %; White Blood Count 9.4 K/mcL (4.3-11.1)
[2021-09-24 21:49] LABS: Albumin 3.8 g/dL (3.5-5.7); Albumin/Globulin Ratio 0.9 (1.1-2.2); Bilirubin,Total 0.3 mg/dL (0.3-1.0); Calcium 8.9 mg/dL (8.6-10.3); Globulin 4.1 g/dL (2.4-3.5); Potassium 5.1 mEq/L (3.5-5.1); Total Protein 7.9 g/dL (6.4-8.9)
[2021-09-24] MEDS ORDERED: Vancomycin 1,500 MG/265 ML IV.SOLN IVPB ONE (21:57)
[2021-09-24] MEDS ORDERED: Piperacillin/Tazobactam 3.375 GM in 0.9 % Sodium Chloride Mini Bag 100 ML IVPB ONE (21:57)
[2021-09-24] MEDS ORDERED: 0.9 % Sodium Chloride 1,000 ML IVC ONE (22:12)
[2021-09-24] MEDS ORDERED: Naloxone 0.4 MG/ML INJ IVP PRN (23:12)
[2021-09-24] MEDS ORDERED: Ondansetron 4 MG/2 ML VIAL IVP PRN (23:12)
[2021-09-24] MEDS ORDERED: 0.9 % Sodium Chloride 1,000 ML IVC SCH (23:15)
[2021-09-24 23:27] LABS: Influenza A PCR Negative (Negative); Influenza B PCR Negative (Negative); Resp. Syncytial Virus PCR Negative (Negative)
[2021-09-24 23:28] LABS: SARS-CoV-2 by PCR (In House) Negative (Negative)
[2021-09-25] MEDS ORDERED: Dextrose Gel 15 GM/37.5 ML TUBE PO PRN ×2 (03:10)
[2021-09-25] MEDS ORDERED: *HR* Dextrose 50 % in Water (Syg) 50 ML SYRINGE IVP PRN (03:10)
[2021-09-25] MEDS ORDERED: D5% in Water 1,000 ML IVC PRN (03:10)
[2021-09-25] MEDS: Piperacillin/Tazobactam 3.375 GM in 0.9 % Sodium Chloride Mini Bag 100 ML IVPB SCH ×3 (05:17→21:19)
[2021-09-25 05:29] LABS: Sodium, Urine 53.2 mEq/L
[2021-09-25] MEDS: Insulin LISPRO 300 UNITS/3 ML VIAL SUBQ SCH ×4 (05:42→22:41)
[2021-09-25 07:18] LABS: Hematocrit 31.5 % (37.5-50.1); Hemoglobin 9.5 g/dL (12.9-16.9); Mean Corpuscular HGB Conc 30.2 g/dL (31.6-35.5); Mean Corpuscular Hemoglobin 26.8 pg (28.0-33.3); Mean Corpuscular Volume 88.7 fL (83.0-100.0); Platelet Count 263 K/mcL (140-400); Red Blood Count 3.55 M/mcL (4.19-5.50); Red Cell Distribution Width 14.4 % (11.5-14.5); White Blood Count 7.8 K/mcL (4.3-11.1)
[2021-09-25 07:35] LABS: Calcium 8.6 mg/dL (8.6-10.3); Potassium 5.1 mEq/L (3.5-5.1)
[2021-09-25 11:24] LABS: Estimated Average Glucose 151 mg/dl; Hemoglobin A1C 6.9 %
[2021-09-25] MEDS: Acetaminophen 325 MG TABLET PO PRN (18:56)
[2021-09-25] MEDS ORDERED: Vancomycin 1,250 MG/262.5 ML IV.SOLN IVPB SCH (22:00)
[2021-09-26] MEDS: Acetaminophen 325 MG TABLET PO PRN (01:25)
[2021-09-26] MEDS ORDERED: Vancomycin 1,250 MG/262.5 ML IV.SOLN IVPB ONE (03:00)
[2021-09-26] MEDS ORDERED: *HR* HYDROmorphone 2 MG TABLET PO ONE (03:38)
[2021-09-26] MEDS: Insulin LISPRO 300 UNITS/3 ML VIAL SUBQ SCH ×3 (05:09→17:07)
[2021-09-26] MEDS: Piperacillin/Tazobactam 3.375 GM in 0.9 % Sodium Chloride Mini Bag 100 ML IVPB SCH ×3 (05:13→21:04)
[2021-09-26 07:08] LABS: Calcium 9.7 mg/dL (8.6-10.3)
[2021-09-26] MEDS ORDERED: Albuterol 2.5 MG/3 ML NEBULIZER IH PRN (07:42)
[2021-09-26] MEDS: Furosemide 20 MG TABLET PO SCH ×2 (08:48→17:06)
[2021-09-26] MEDS: Cyanocobalamin (B-12) 1,000 MCG TABLET PO SCH (08:49)
[2021-09-26] MEDS: Cholecalciferol (D-3) 1,000 UNIT (25MCG) TABLET PO SCH (08:49)
[2021-09-26] MEDS: Gabapentin 400 MG CAPSULE PO SCH ×2 (08:49→21:04)
[2021-09-26] MEDS: Magnesium Oxide 400 MG TABLET PO SCH (08:49)
[2021-09-26] MEDS: Diclofenac Sodium (DR) 75 MG TABLET.DR PO SCH ×2 (08:49→17:06)
[2021-09-26] MEDS ORDERED: Ipratropium 1 PUFF INHALER IH PRN (10:00)
[2021-09-26] MEDS: Budesonide/Formoterol 80/4.5 1 PUFF INH IH SCH ×2 (10:43→20:21)
[2021-09-27 01:07] LABS: Basophils # 0.1 K/mcL (0.0-0.2); Basophils % 0.7 %; Eosinophils # 0.4 K/mcL (0.0-0.6); Eosinophils % 5.3 %; Hematocrit 34.9 % (37.5-50.1); Hemoglobin 10.8 g/dL (12.9-16.9); Immature Granulocytes % 0.3 % (0-4); Lymphocytes # 2.1 K/mcL (0.6-4.6); Lymphocytes % 27.9 %; Mean Corpuscular HGB Conc 30.9 g/dL (31.6-35.5); Mean Corpuscular Hemoglobin 26.5 pg (28.0-33.3); Mean Corpuscular Volume 85.7 fL (83.0-100.0); Mean Platelet Volume 7.8 fL (9.4-12.4); Monocytes # 0.8 K/mcL (0.0-1.3); Monocytes % 10.3 %; Neutrophils # 4.2 K/mcL (1.6-8.9); Platelet Count 281 K/mcL (140-400); Red Blood Count 4.07 M/mcL (4.19-5.50); Red Cell Distribution Width 14.6 % (11.5-14.5); Segmented Neutrophils % 55.5 %; White Blood Count 7.5 K/mcL (4.3-11.1)
[2021-09-27] MEDS: Insulin LISPRO 300 UNITS/3 ML VIAL SUBQ SCH ×4 (01:14→17:23)
[2021-09-27 01:25] LABS: Albumin 3.6 g/dL (3.5-5.7); Albumin/Globulin Ratio 0.9 (1.1-2.2); Bilirubin,Total 0.4 mg/dL (0.3-1.0); Calcium 9.5 mg/dL (8.6-10.3); Potassium 4.6 mEq/L (3.5-5.1); Total Protein 7.6 g/dL (6.4-8.9)
[2021-09-27] MEDS: Piperacillin/Tazobactam 3.375 GM in 0.9 % Sodium Chloride Mini Bag 100 ML IVPB SCH (05:51)
[2021-09-27] MEDS: Magnesium Oxide 400 MG TABLET PO SCH (08:19)
[2021-09-27] MEDS: Furosemide 20 MG TABLET PO SCH (08:19)
[2021-09-27] MEDS: Gabapentin 400 MG CAPSULE PO SCH ×2 (08:19→19:58)
[2021-09-27] MEDS: Cyanocobalamin (B-12) 1,000 MCG TABLET PO SCH (08:19)
[2021-09-27] MEDS: Aspirin 81 MG TAB.CHEW PO SCH (08:19)
[2021-09-27] MEDS: Diclofenac Sodium (DR) 75 MG TABLET.DR PO SCH (08:19)
[2021-09-27] MEDS: Cholecalciferol (D-3) 1,000 UNIT (25MCG) TABLET PO SCH (08:19)
[2021-09-27] MEDS: Budesonide/Formoterol 80/4.5 1 PUFF INH IH SCH ×2 (10:53→20:33)
[2021-09-27] MEDS ORDERED: Cefepime HCl 1,000 MG in 0.9 % Sodium Chloride Mini Bag 100 ML IVPB SCH (18:00)
[2021-09-28] MEDS: Insulin LISPRO 300 UNITS/3 ML VIAL SUBQ SCH (00:24)
[2021-09-28 02:56] LABS: Basophils # 0.1 K/mcL (0.0-0.2); Basophils % 0.8 %; Eosinophils # 0.4 K/mcL (0.0-0.6); Eosinophils % 4.4 %; Hematocrit 36.5 % (37.5-50.1); Hemoglobin 11.6 g/dL (12.9-16.9); Immature Granulocytes % 0.4 % (0-4); Lymphocytes # 2.1 K/mcL (0.6-4.6); Lymphocytes % 24.9 %; Mean Corpuscular HGB Conc 31.8 g/dL (31.6-35.5); Mean Corpuscular Hemoglobin 27.4 pg (28.0-33.3); Mean Corpuscular Volume 86.1 fL (83.0-100.0); Mean Platelet Volume 7.8 fL (9.4-12.4); Monocytes # 0.9 K/mcL (0.0-1.3); Monocytes % 10.3 %; Neutrophils # 4.9 K/mcL (1.6-8.9); Platelet Count 277 K/mcL (140-400); Red Blood Count 4.24 M/mcL (4.19-5.50); Red Cell Distribution Width 14.6 % (11.5-14.5); Segmented Neutrophils % 59.2 %; White Blood Count 8.3 K/mcL (4.3-11.1)
[2021-09-28 03:14] LABS: Albumin 3.8 g/dL (3.5-5.7); Bilirubin,Total 0.3 mg/dL (0.3-1.0); Calcium 9.3 mg/dL (8.6-10.3); Potassium 4.4 mEq/L (3.5-5.1); Total Protein 7.8 g/dL (6.4-8.9)
[2021-09-28] MEDS ORDERED: Insulin LISPRO 300 UNITS/3 ML VIAL SUBQ SCH (07:30)
[2021-09-28] MEDS ORDERED: levoFLOXacin 750 MG TABLET PO SCH (09:00)
[2021-09-28] MEDS: Cholecalciferol (D-3) 1,000 UNIT (25MCG) TABLET PO SCH (09:00)
[2021-09-28] MEDS: Aspirin 81 MG TAB.CHEW PO SCH (09:01)
[2021-09-28] MEDS: Gabapentin 400 MG CAPSULE PO SCH (09:01)
[2021-09-28] MEDS: Magnesium Oxide 400 MG TABLET PO SCH (09:01)
[2021-09-28] MEDS: Cyanocobalamin (B-12) 1,000 MCG TABLET PO SCH (09:02)
[2021-09-28] MEDS ORDERED: 0.9 % Sodium Chloride 500 ML IVC ONE (09:31)
[2021-09-28 10:56] VITALS: BP 121/82; PULSE 103; TEMP 97.4; O2SAT 96
[2021-09-28] MEDS: Budesonide/Formoterol 80/4.5 1 PUFF INH IH SCH (11:11)
== END 2021-09-28 14:42 | disposition home or self-care (01) | DRG 638 ==
LOC: EMEROOARM 20:26 → 3BNU 20:26 → SUATTDRO 09-26 21:01
PROVIDERS: ADMIT Student in an Organized Health Care Education/Training Program; ATTEND Registered Nurse

== ENCOUNTER 2022-05-17 08:53 | Observation (INO) ==
[2022-05-17 09:53] LABS: Basophils # 0.1 K/mcL (0.0-0.2); Basophils % 0.7 %; Eosinophils # 0.4 K/mcL (0.0-0.6); Eosinophils % 5.9 %; Hematocrit 36.5 % (37.5-50.1); Hemoglobin 11.7 g/dL (12.9-16.9); Immature Granulocytes % 0.3 % (0-4); Lymphocytes # 1.1 K/mcL (0.6-4.6); Lymphocytes % 15.8 %; Mean Corpuscular HGB Conc 32.1 g/dL (31.6-35.5); Mean Corpuscular Hemoglobin 27.6 pg (28.0-33.3); Mean Corpuscular Volume 86.1 fL (83.0-100.0); Monocytes # 0.6 K/mcL (0.0-1.3); Monocytes % 8.2 %; Neutrophils # 4.9 K/mcL (1.6-8.9); Platelet Count 328 K/mcL (140-400); Red Blood Count 4.24 M/mcL (4.19-5.50); Red Cell Distribution Width 14.9 % (11.5-14.5); Segmented Neutrophils % 69.1 %; White Blood Count 7.1 K/mcL (4.3-11.1)
[2022-05-17 10:07] LABS: Calcium 9.7 mg/dL (8.6-10.3); Potassium 3.9 mEq/L (3.5-5.1)
[2022-05-17] MEDS ORDERED: DAPTOmycin 500 MG in 0.9 % Sodium Chloride 100 ML IVPB ONE (10:14)
[2022-05-17] MEDS ORDERED: Acetaminophen 325 MG TABLET PO PRN (10:28)
[2022-05-17] MEDS ORDERED: Melatonin 3 MG TABLET PO PRN (10:28)
[2022-05-17] MEDS ORDERED: Naloxone 0.4 MG/ML INJ IVP PRN (10:28)
[2022-05-17] MEDS ORDERED: *HR* OxyCODONE Immed Rel 5 MG TABLET PO PRN (10:28)
[2022-05-17] MEDS ORDERED: *HR* HYDROcodone/Acet 5/325 mg TABLET PO PRN (10:28)
[2022-05-17] MEDS ORDERED: Ondansetron 4 MG/2 ML VIAL IVP PRN (10:28)
[2022-05-17] MEDS ORDERED: D5% in Water 1,000 ML IVC PRN (10:30)
[2022-05-17] MEDS ORDERED: Dextrose Gel 15 GM/37.5 ML TUBE PO PRN ×2 (10:30)
[2022-05-17] MEDS ORDERED: *HR* Dextrose 50 % in Water (Syg) 50 ML SYRINGE IVP PRN (10:30)
[2022-05-17] MEDS ORDERED: Ipratropium/Albuterol Neb 3 ML IH PRN (10:34)
[2022-05-17] MEDS ORDERED: *HR* Labetalol 20 MG/4 ML SYRINGE IVP PRN (10:36)
[2022-05-17 12:58] LABS: INR 1.1; Prothrombin Time 12.4 Seconds (9.4-12.1)
[2022-05-17] MEDS: Insulin LISPRO 300 UNITS/3 ML VIAL SUBQ SCH ×2 (16:28→17:59)
[2022-05-17] MEDS: *HR* Heparin 5,000 UNIT/ML VIAL SQ SCH ×2 (16:29→21:27)
[2022-05-18] MEDS: Insulin LISPRO 300 UNITS/3 ML VIAL SUBQ SCH ×4 (01:25→17:31)
[2022-05-18 05:33] LABS: Basophils # 0.1 K/mcL (0.0-0.2); Basophils % 0.7 %; Eosinophils # 0.4 K/mcL (0.0-0.6); Eosinophils % 4.1 %; Hematocrit 38.4 % (37.5-50.1); Hemoglobin 12.3 g/dL (12.9-16.9); Immature Granulocytes % 0.2 % (0-4); Lymphocytes # 1.9 K/mcL (0.6-4.6); Lymphocytes % 21.1 %; Mean Corpuscular Hemoglobin 26.9 pg (28.0-33.3); Mean Platelet Volume 8.3 fL (9.4-12.4); Monocytes # 0.9 K/mcL (0.0-1.3); Monocytes % 10.4 %; Neutrophils # 5.7 K/mcL (1.6-8.9); Platelet Count 359 K/mcL (140-400); Red Blood Count 4.57 M/mcL (4.19-5.50); Segmented Neutrophils % 63.5 %; White Blood Count 8.9 K/mcL (4.3-11.1)
[2022-05-18 05:50] LABS: Calcium 9.6 mg/dL (8.6-10.3); Potassium 4.1 mEq/L (3.5-5.1)
[2022-05-18] MEDS: *HR* Heparin 5,000 UNIT/ML VIAL SQ SCH ×3 (06:18→22:15)
[2022-05-18] MEDS ORDERED: DAPTOmycin 500 MG in 0.9 % Sodium Chloride 100 ML IVPB SCH (10:00)
[2022-05-19] MEDS: Insulin LISPRO 300 UNITS/3 ML VIAL SUBQ SCH ×2 (02:22→05:35)
[2022-05-19] MEDS: *HR* Heparin 5,000 UNIT/ML VIAL SQ SCH (05:16)
[2022-05-19 06:43] VITALS: O2SAT 98
[2022-05-19] MEDS ORDERED: Cyanocobalamin (B-12) 1,000 MCG TABLET PO SCH (09:00)
[2022-05-19] MEDS ORDERED: Magnesium Oxide 400 MG TABLET PO SCH (09:00)
[2022-05-19] MEDS ORDERED: amLODIPine 5 MG TABLET PO SCH (09:00)
[2022-05-19] MEDS ORDERED: NON-FORMULARY MEDICATION 1 EACH EACH (Ezetimibe [Zetia] 10 MG Tablet) PO SCH (09:00)
[2022-05-19] MEDS ORDERED: Gabapentin 400 MG CAPSULE PO SCH (09:00)
[2022-05-19] MEDS ORDERED: Budesonide/Formoterol 80/4.5 1 PUFF INH IH SCH (10:00)
[2022-05-19 10:53] VITALS: BP 131/88; PULSE 101; TEMP 97.8
[2022-05-19 15:01] LABS: Influenza A PCR Negative (Negative); Influenza B PCR Negative (Negative); Resp. Syncytial Virus PCR Negative (Negative)
[2022-05-19 15:29] LABS: SARS-CoV-2 by PCR (In House) Negative (Negative)
[2022-05-19] MEDS ORDERED: Melatonin 3 MG TABLET PO SCH (21:00)
== END 2022-05-19 15:43 ==
LOC: 3ANU 08:53 → EMEROOARM 08:53 → SUATTDRO 14:06 → 3ANU 14:52
PROVIDERS: ADMIT Student in an Organized Health Care Education/Training Program; ATTEND Internal Medicine